=== PATIENT | male | born 1925 | race Caucasian/White ===

== ENCOUNTER → 2016-08-23 | Outpatient (CLI) | payer OTHER ==
--- NOTE | 2016-08-23 17:34 | US ---
Left lower extremity duplex venous Doppler INDICATION: Left leg pain and swelling. TECHNIQUE: Left lower extremity venous Doppler and grayscale evaluation is performed. FINDINGS: There is no evidence for DVT. The visualized superficial and deep systems demonstrate sienna l flow and compressibility. Incidentally noted is a popliteal Bird's cyst of 2.9 x 0.7 x 1.4 cm. IMPRESSION: 1. No DVT. 2. Small simple left Bird's cyst.
== END ==
LOC: FIMAGING 16:04
PROVIDERS: ATTEND Family Medicine
DX: R22.42 Localized swelling, mass and lump, left lower limb (principal); M71.22 Synovial cyst of popliteal space [Baker], left knee

== ENCOUNTER 2016-09-07 19:15 | Inpatient (IN) | payer OTHER ==
--- NOTE | 2016-09-07 19:22 | EDPHY ---
H & P Time Seen by Provider: 09/07/16 19:20 HPI/ROS: CHIEF COMPLAINT: Mechanical fall, right hand pain, left shoulder pain, neck pain HISTORY OF PRESENT ILLNESS: The patient is brought to the emergency department by ambulance after he sustained a mechanical fall. Patient does have a history of atrial fibrillation and is anticoagulated. The patient has stopped taking some his medications recently secondary to dizziness. Patient was unable to get up and activated his Life Alert button. The patient was noted to be in atrial fibrillation in route with a variable rate anywhere from 90-160. In the ED, the patient complains of right hand pain. The patient also complains of some occipital pain and mild generalized cervical neck pain. He denies nausea or vomiting. He denies focal numbness or weakness. He denies additional extremity complaints. REVIEW OF SYSTEMS: A comprehensive 10 point review of systems is otherwise negative aside from elements mentioned in the history of present illness. 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, BPH, back pain, sleep apnea - Social History Smoking Status: Former smoker Alcohol Use: None Drug Use: None - Physical Exam Exam: General Appearance: Elderly male, no acute distress Head: Atraumatic Eyes: Pupils equal, round, reactive ENT, Mouth: No hemotympanum, no oral trauma Neck: Nontender, trachea midline Respiratory: No chest wall tender, subcutaneous air, lungs clear bilaterally Cardiovascular: Regular rate and rhythm Abdomen: Abdomen is soft and nontender, pelvis stable Skin: No lacerations, No abrasion Back: No midline T/L/S pain Extremities: Tenderness to palpation, abrasions Neurological: Alert and oriented x1, 5/5 strength all 4 extremities Constitutional: Initial Vital Signs Temperature (C) 36.5 C 09/07/16 19:35 Heart Rate 116 H 09/07/16 19:35 Respiratory Rate 18 09/07/16 19:35 Blood Pressure 121/88 H 09/07/16 19:35 O2 Sat (%) 88 L 09/07/16 19:35 O2 Delivery Mode Nasal Cannula O2 (L/minute) 2 Allergies/Adverse Reactions: amoxicillin trihydrate [From Augmentin] Allergy (Severe, Verified 07/01/16 12:13 ) Hives hydrocodone [Hydrocodone] Allergy (Severe, Verified 07/01/16 12:13) Hives levofloxacin [From Levaquin] Allergy (Severe, Verified 07/01/16 12:13) Hives Potassium Chloride [From Klor-Con] Allergy (Severe, Verified 07/01/16 12:13) ANKLE SWELLING potassium clavula *RETIRED-04/13/12 [From Augmentin] Allergy (Severe, Verified 07/01/16 12:13) Hives furosemide [From Lasix] Allergy (Unknown, Verified 07/01/16 12:13) JOINT PAIN Sulfa (Sulfonamide Antibiotics) Allergy (Unknown, Verified 07/01/16 12:13) NAUSEA, VOMITING triamterene [Triamterene] Allergy (Unknown, Verified 07/01/16 12:13) Unknown Home Medications: Medication Instructions Recorded Acetaminophen [Tylenol 325mg (*)] 650 mg PO DAILY PRN 11/01/13 Warfarin Sodium [Coumadin 5MG (*)] 5 mg PO DAILY@16 11/01/13 Atorvastatin Calcium [Lipitor 40 40 mg PO DAILY@16 01/06/15 mg (*)] Methenamine Mandelate [METHENAMINE 0.5 tab PO BID 01/06/15 MANDELATE] Colchicine [Colcrys] 0.6 mg PO DAILY PRN 10/29/15 Edroy-3 Fatty Acids [Fish Oil 1000 1,000 mg PO BID 10/29/15 mg (*)] Vit A/Vit C/Vit E/Zinc/Copper 1 cap PO BID 10/29/15 [Preservision Areds Softgel] Furosemide [Lasix 20 MG (*)] 20 mg PO BID@0900,1500 #60 tab 07/04/16 Diltiazem Cd [Cardizem ER 120 MG 120 mg PO BID 09/08/16 (*)] Medical Decision Making - Diagnostics EKG Interpretation: EKG: Complete interpretation has been separately recorded in the [facility] archive. Summary impression: Atrial fibrillation with rapid ventricular response, atrial rate 132 Imaging: CT head without contrast: Negative for intracranial hemorrhage. Images reviewed by myself and discussed with radiologist Dr. Demarco Barber. CT cervical spine: Negative for acute fracture, severe DJD noted. Images reviewed by myself and discussed with radiologist Dr. Demarco Barber. Right hand x-ray: Images reviewed by myself, images reviewed by myself Left shoulder x-ray: Negative for acute fracture, images reviewed by myself Right hand x-ray: Images reviewed by myself, negative for acute fracture ED Course/Re-evaluation: The patient arrives to the ED after mechanical fall. He is noted to be in atrial fibrillation with rapid ventricular response. The patient is currently anticoagulated. The patient was placed on a laboratory monitor. He is not hypotensive. The patient will be started on diltiazem drip. Given the fact he is anticoagulated with headache and neck pain, a CT scan of the head and cervical spine has been ordered. Additionally, the patient will receive IV fluids as he appears clinically dehydrated. Radiographic survey the patient's traumatic complaints demonstrate no evidence of intracranial hemorrhage, skull fracture, cervical spine fracture or extremity fracture. The patient will be admitted to the hospital in the setting of his rapid atrial fibrillation. The patient was seen by Dr. Peña in the emergency department will admit the patient. Differential Diagnosis: Differential diagnosis considered includes intracranial hemorrhage, skull fracture, cervical spine fracture, atrial fibrillation with rapid ventricular response, shoulder fracture, hand fracture, metabolic abnormality - Data Points Laboratory Results: Laboratory Results 09/07/16 19:18 09/07/16 19:18 Medications Given: Discontinued Medications Sodium Chloride (Ns) 1,000 mls @ 0 mls/hr IV ONCE ONE PRN Reason: Wide Open Stop: 09/07/16 19:30 Last Admin: 09/07/16 19:50 Dose: 1,000 mls Diltiazem HCl 125 mg/ Dextrose 150 mls @ 0 mls/hr IV EDNOW ONE; Titrate PRN Reason: Protocol Stop: 09/07/16 19:48 Last Admin: 09/07/16 20:10 Dose: 150 mls Sodium Chloride (Ns) 500 mls @ 1,500 mls/hr IV ONCE ONE Stop: 09/07/16 21:04 Last Admin: 09/07/16 21:42 Dose: Not Given Departure - Departure Disposition: [facility] Inpatient Acute Clinical Impression: Atrial fibrillation with tachycardic ventricular rate, Strain of neck muscle, Contusion of scalp Condition: Good
[2016-09-07] MEDS ORDERED: NS 1,000 ML IV ONE (19:29)
[2016-09-07 19:33] LABS: % IMMATURE GRANULYOCYTES 0.4 % (0.0-1.1); ABSOLUTE IMMATURE GRANULOCYTES 0.03 10^3/uL (0.00-0.10); ADD DIFF? NO; ADD MORPH? NO; ADD SCAN? NO; ATYPICAL LYMPHOCYTE FLAG 20 (0-99); FRAGMENT RBC FLAG 0 (0-99); HEMATOCRIT 44.4 % (40.0-51.0); HEMOGLOBIN 14.6 g/dL (13.7-17.5); LEFT SHIFT FLG 0 (0-99); LIPEMIA HEMOLYSIS FLAG 80 (0-99); MEAN CELL HEMOGLOBIN 30.7 pg (27.9-34.1); MEAN CELL HEMOGLOBIN CONCENTR. 32.9 g/dL (32.4-36.7); MEAN CELL VOLUME 93.5 fL (81.5-99.8); MEAN PLATELET VOLUME 9.8 fL (8.7-11.7); PLATELET CLUMPS FLAG 0 (0-99); PLATELET COUNT 301 10^3/uL (150-400); RED BLOOD CELL COUNT 4.75 10^6/uL (4.40-6.38); RED CELL DISTRIBUTION WIDTH 14.7 % (11.5-15.2)
[2016-09-07 19:45] LABS: INR 1.61 (0.83-1.16); PROTIME(PATIENT) 19.2 SEC (12.0-15.0)
[2016-09-07] MEDS ORDERED: DILTIAZEM 125 MG in D5W 125 ML IV ONE (19:47)
[2016-09-07 19:48] LABS: ANION GAP 13 mEq/L (8-16); CARBON DIOXIDE 24 mEq/l (22-31); CHLORIDE 103 mEq/L (97-110); CREATININE 1.2 mg/dL (0.7-1.3); GLOMERULAR FILTRATION RATE 57; GLUCOSE 106 mg/dL (70-100); POTASSIUM 4.5 mEq/L (3.5-5.2); SODIUM 140 mEq/L (134-144)
--- NOTE | 2016-09-07 19:56 | CPEKG ---
Heart Rate: 132 RR Interval: 455 QRSD Interval: 126 QT Interval: 348 QTC Interval: 516 QRS [place]: -47 T Wave [place]: 16 EKG Severity - ABNORMAL ECG - EKG Impression: ATRIAL FIBRILLATION, V-RATE 90-165 EKG Impression: RBBB AND LAFB EKG Impression: PROBABLE LEFT VENTRICULAR HYPERTROPHY Electronically Signed By: Guille Hernandez 07-Sep-2016 19:56:56
--- NOTE | 2016-09-07 20:30 | CT ---
CT Scan of the Head (Without Contrast) Clinical History: 89-year-old male with a history of atrial fibrillation who sustained a fall, hittin g his head and complaining of occipital pain and generalized neck pain. Technique: Axial unenhanced images were obtained from the vertex through the skull base, reformatted at 5.00 and 1.50 mm increments, and reviewed in bone, brain, and subdural windows. Images were repro cessed in parasagittal and paracoronal planes. Dose reduction techniques were utilized. The DFOV is 2 5.0 cm. Comparison Studies: Unenhanced CT scan of the brain dated April 29, 2016 and February 27, 2016. Findings: Again, there is enlargement of the ventricles and basilar cisterns with cortical sulcal wid ening, consistent with moderately advanced cerebral cortical atrophy (NPH is not excluded, although t he findings are stable from before). There is periventricular diminished attenuation, consistent with chronic microvascular ischemic gliosis. There is also some cerebellar cortical atrophy. There is ath erosclerotic calcification of the cavernous carotid arteries and of the left vertebral artery. There is no midline shift, or other new evidence of mass effect. There is no abnormal intra or extra-axial blood collection, or acute infarction identified. The paranasal sinuses and the mastoids are patent, with some minimal mucosal thickening seen at the frontal-ethmoidal recesses. The craniocervical junct ion, sella turcica, pineal gland, and the orbits are within normal limits. Impression: Advanced senescent features, with no substantial change from studies in 2016. If there is further clinical concern regarding the patient's symptoms, MR imaging is suggested, if no t otherwise contraindicated. Results were conveyed to Dr. Guille Hernandez. A test result has been communicated to a licensed care provider and documented in the [employer] Critical Result system on 09/07/2016 20:26, Message ID [id number].
--- NOTE | 2016-09-07 20:42 | CT ---
Unenhanced CT Scan of the Cervical Spine Clinical History: 89-year-old male presenting to the ED after a fall hitting back of his head and com plaining of occipital pain and generalized cervicalgia. The patient is anticoagulated, and has a hist ory of atrial fibrillation. TECHNIQUE: A multidetector unenhanced helical CT scan was obtained from the clivus caudally through t he upper thoracic spine, with images reformatted at 1.50 mm increments, and are reviewed in soft tiss ue, bone, and lung windows. Parasagittal and paracoronal reconstructed images are reviewed on the wor kstation. The DFOV is 14.9 cm. COMPARISON STUDY: Unenhanced CT imaging of the cervical spine, dated April 29, 2016. FINDINGS: The bones are demineralized, and the morphology of the cervical vertebral bodies is unchang ed from April 29, 2016. There is trace anterolisthesis at C4-C5. There is degenerative disk space narrowing at C5-C6 and C6-C7 with vacuum disk phenomena. Ventral traction osteophytes are seen from C4 to C7. Multilevel facet osteoarthropathy and uncovertebral hypertrophy results in neural foraminal stenoses, most pronounced on the right at C4-C5, on the left at C5-C6, and on the left at C6-C7. The re is no acute fracture or facet malalignment. The interspinous distances are normal. The craniocervi vincent junction is normal. There is degenerative narrowing of the predental space, with osseous hypertro phy of the anterior arch of C1. The atlantoaxial alignment is maintained, and the base and the tip of the dens are normal. There is no prevertebral hematoma or epidural hematoma identified. The lung api cuba are clear. Impression: Senescent features of the spine, with no acute abnormality, or substantial change from Se pt2015. If there is further clinical concern regarding the patient's symptoms, correlative MR imaging could b e considered, if otherwise not contraindicated. Results were discussed with Dr. Ozzie Urias, who is now covering for Dr. Erwin Hernandez. A test result has been communicated to a licensed care provider and documented in the [employer] Critical Result system on 09/07/2016 20:35, Message ID [id number].
[2016-09-07] MEDS ORDERED: ONDANSETRON DISINTEGRATING 4 MG TAB PO PRN (20:45)
[2016-09-07] MEDS ORDERED: NS 500 ML IV ONE (20:45)
[2016-09-07] MEDS ORDERED: ONDANSETRON 4 MG/2 ML VIAL IVP PRN (20:45)
--- NOTE | 2016-09-07 21:00 | DX ---
Bilateral Hands, Three Views Each Clinical History: 89-year-old male with right and left hand pain after a fall. Rule out fracture. Comparison Study: None. Findings LEFT HAND, at 8:40 p.m.: The bones are demineralized. There is some degenerative narrowing of the r adioulnar joint space and also of the navicular-greater multangular articulation. There is some mild degenerative change involving the thumb MCP and IP joints. There is a palmar spur associated with t he distal radius. Vascular calcifications are present. There is no acute fracture or dislocation id entified. Impression: There is no acute osseous abnormality identified. RIGHT HAND, at 8:16 p.m.: As on the contralateral side, the bones are demineralized. Vascular calci fications are present. There is some degenerative narrowing of the navicular-greater multangular art iculation, and also involving the thumb MCP and IP joints and the 2nd through 5th digit DIP joints. There is no acute fracture or dislocation identified. Impression: There is no acute fracture identified. Given the patient's degree of bone demineralization, if there is a high clinical concern regarding an occult fracture, conservative management and short-term repeat radiographic follow up in 7-14 days c ould be considered.
--- NOTE | 2016-09-07 21:05 | DX ---
Left Shoulder, Three Views, at 8:24 p.m. Clinical History: 89-year-old male who fell, and complains of shoulder pain. Comparison Study: None. Findings: Oxygen tubing and telemetry monitoring lead lines are present. The bones are demineralize d. There is no acute fracture or dislocation. The glenohumeral and acromioclavicular joints are corinne tomically aligned. There is some mild degenerative change at the AC joint. The coracoclavicular and acromiohumeral distances are appropriate. There are some hypoventilatory changes associated with th e left hemithorax, with some left basilar subsegmental atelectasis. There is atherosclerotic calcifi cation of the aortic knob. The visualized left rib cage is intact. Impression: There is no acute osseous abnormality identified. If there is a high clinical concern regarding the patient's pain, MR imaging could be considered.
--- NOTE | 2016-09-07 21:41 | GHP ---
[f rep st] HISTORY AND PHYSICAL DATE OF ADMISSION: 09/07/2016 CHIEF COMPLAINT: Fall. HISTORY OF PRESENT ILLNESS: An 89-year-old male with multiple medical comorbidities including perman ent atrial fibrillation who presents after a fall in the home. The patient cannot entirely describe the circumstances of his fall, but just felt lightheaded and fell down, hitting his head and injuring his hand and shoulder. The patient reports not feeling well over the preceding days, and had report ed to a family member that he thought the medications that he was being given for his atrial fibrilla tion were the cause. So he decided to discontinue those medications. To me, he reports that he simp ly fell weak and lethargic. Denied any specific shortness of breath. Denied cough. Denied specific fever. Denied chest pain, does not feel palpitations even when his heart rate is going fast. Minerva yu nausea. Had transient diarrhea which has resolved in the last couple of days. Denies dysuria, hem aturia or lower extremity edema. He did feel some dizziness prior to his fall. After the fall, was unable to activate his Life Alert button. He is complaining of right hand pain and some headache. PAST MEDICAL HISTORY: For this patient: 1. Atrial fibrillation. 2. Chronic systolic heart failure. 3. An infrarenal AAA. 4. Diabetes. 5. Dyslipidemia. 6. Hypertension. 7. CKD. 8. History of pulmonary embolism, on anticoagulation. 9. BPH. 10. Sleep apnea. 11. Back pain. SOCIAL HISTORY: Patient lives alone. Does not smoke. Drinks 1 vodka tonic in the evenings. Denies illicit drugs or marijuana. FAMILY HISTORY: Positive for an ME in his father in his 50s. ADVANCED DIRECTIVES: The patient is Do Not Resuscitate. His son would be his medical decision maker . REVIEW OF SYSTEMS: A 10-point review of systems is negative with the exception of that reported in t he HPI. PHYSICAL EXAMINATION: VITAL SIGNS: Blood pressure is 103/62, heart rate 135, respiratory rate 18, 9 3% on 2 L, afebrile at 36.5. GENERAL: This is a pleasant elderly male in no acute distress. HEENT: Notable for dry mucous membranes. Eyes are negative for any icterus. CARDIAC: Patient is irregul amada irregular and tachycardic. PULMONARY: Good respiratory effort. Clear to auscultation bilatera lly. GASTROINTESTINAL: Positive bowel sounds. Abdomen is soft. MUSCULOSKELETAL: Negative for any lower extremity edema. SKIN: There is excoriation to the head and bruising to the right hand. Neg ative for any rashes. NEUROLOGIC: The patient is alert and oriented x3. PSYCHIATRIC: He is pleasa nt and cooperative on interview and examination. DATA: White count 8.5, hematocrit 44. INR 1.6. Creatinine 1.2, recent baseline is 1. BUN 28. Noncontrast CT of the head, which I personally reviewed and interpreted, shows no acute bleed. Hand x-ray, which I personally reviewed and interpreted, shows no acute osseous abnormality of the le ft or right hand. ASSESSMENT AND PLAN: This is an 89-year-old male presenting after a fall with a prodrome of weakness and dizziness. 1. Acute atrial fibrillation with rapid ventricular response. I suspect the patient's rates are unc ontrolled because he has not been taking his medications at home. We will admit the patient to the [facility] and initiate a diltiazem drip. The fall certainly brings me great concerns related to his anticoa gulation. Will need to discuss this further as I believe he is reasonably a high risk for full-dose anticoagulation. 2. Chronic systolic heart failure. The patient is requiring 2 L of supplemental oxygen. Has no low er extremity edema. We will continue his chronic home medications. He appears dry on my examination . 3. Coronary artery disease. Has a history of stenting. Not complaining of chest pain. Will contin ue his home medications. 4. Diabetes. This is diet managed, will continue. 5. Fall. Sounds less mechanical, more related to possible atrial fibrillation and associated tachyc ardia and dizziness. Will order PT/OT for evaluation. My suspicion is high this patient needs eithe r a much higher level of support at home or SNF disposition. 6. Prophylaxis. Will continue patient's warfarin as INR is subtherapeutic. 7. DIET: Cardiac. 8. DISPOSITION: I expect greater than 2 midnights. Some complicated conversations will need to be initiated about safe disposition. 9. I discussed the case with the emergency room physician. Patient will be triaged to the PCU for c are. /[id number]/MODL
[2016-09-07] MEDS ORDERED: DILTIAZEM 125 MG in D5W 125 ML IV SCH (22:00)
[2016-09-08 06:04] LABS: ANION GAP 11 mEq/L (8-16); CALCIUM 8.2 mg/dL (8.5-10.4); CARBON DIOXIDE 24 mEq/l (22-31); CHLORIDE 107 mEq/L (97-110); GLOMERULAR FILTRATION RATE > 60; GLUCOSE 92 mg/dL (70-100); POTASSIUM 4.1 mEq/L (3.5-5.2); SODIUM 142 mEq/L (134-144)
[2016-09-08] MEDS: PRESERVISION AREDS2 FORMULA EYE VIT 1 EACH PO SCH ×2 (09:01→18:31)
[2016-09-08] MEDS: OMEGA-3 FATTY ACIDS 1,000 MG CAP PO SCH ×2 (09:01→21:00)
[2016-09-08] MEDS: METHENAMINE HIPP 1 GM TAB PO SCH ×2 (10:23→20:58)
--- NOTE | 2016-09-08 10:46 | PDCARPN ---
Cardiology Progress Note Chief Complaint: Fall with syncope at home Assessment/Plan: Assessment: Patient is an 89 y/o male with outpatient following by [facility] for CHF ( ischaemic), atrial fibrillation (on coumadin with [id number] score of 5), AAA, DM, HTN, HLP, PE (on anticoagulation for this as well), and ANDRE, who presented to [facility] after dizziness and syncope were noted. Patient has not been seen by [facility] for some time (last seen in the fall) with discussion at that time about lack of symptoms. Event monitor was also performed prior to the last office visit by Dr. Merrick Medrano after concerns about SSS with the atrial fibrillation. Pauses up to 3.5 seconds were noted without debra symptoms reported. Patient is very hard of hearing, and there is some confusion about medications (there are only three cardiac meds - statins, beta blockers, and anticoagulation). In his room today, the patient reports that he has been feeling fair, but does not know how he got on the floor. There was some dizziness noted, but difficult to know if the dizziness was before the event or after the event. Patient denies and chest pains or pressure. No PND or orthopnea. Plan: (1) Given the long standing history of atrial fibrillation and the pauses that were noted on the event monitor from the Fall of 2015, there is an arguement for PPM implantation, but indication is quite soft. (2) Would ambulate the patient on telemetry today and monitor symptoms and rhythm (3) Continue therapy on statins for HLP and maintain annual assessment of cholesterol (4) Would continue coumadin for both CVA risk and history of PE (5) Metoprolol can be continued while in house, but would consider cessation ( if blood pressure would allow) given the pauses that were noted on an event monitor from the Fall (6) Cardiology will continue to follow this patient Subjective: No cardiovascular complaints Reviewed/Discussed With: multidisciplinary team Time Spent With Patient: 15 minutes Objective: Vital Signs (8 Hrs) Temp Pulse Resp BP Pulse Ox 09/08/16 07:31 36.6 C 92 18 124/85 H 90 L 09/08/16 04:33 36.9 C 82 20 110/74 91 L Intake/Output (24 Hrs) 09/07/16 09/08/16 09/09/16 05:59 05:59 05:59 Intake Total 2578 300 Output Total 250 Balance 2578 50 Intake: Oral (ml) 200 300 IV Infused (ml) 2378 Diltiazem 125 mg In D5w 78 125 ml @ Per Protocol IV CONT CLAU Rx#:[id number] Output: Urine (ml) 250 Toilet 250 Other: Weight 86.4 kg Intake Quantity Yes Yes Sufficient Number of Voids 1 Toilet 1 Result Diagrams: 09/07/16 19:18 09/08/16 03:56 Telemetry: atrial fibrillation with controlled rates (<110 bpm) - Physical Exam Constitutional: WDWN, healthy appearing, no apparent distress Eyes: PERRL, EOMI Ears, Nose, Mouth, Throat: moist mucous membranes Cardiovascular: systolic murmur, irregularly irregular Peripheral Pulses: 2+: dorsalis-pedis (R), dorsalis-pedis (L) Respiratory: clear to auscultate bilat, no wheezes, reduced air movement Gastrointestinal: normoactive bowel sounds Skin: no rashes, no edema Musculoskeletal: no muscular tenderness Neurologic: AAOx3, CN II-XII grossly intact Psychiatric: cooperative, interactive, following commands, other (very hard of hearing) ICD10 Worksheet Patient Problems: Problems Problem Status Diagnosed Atrial fibrillation with tachycardic ventricular rate Acute Confusion Acute Dizziness Acute Failure to thrive Acute Acute exacerbation of congestive heart failure Acute Chest pain Acute Congestive heart failure Acute Frequent falls Acute Head injury Acute Palliative care encounter Acute Pneumonia Acute
[2016-09-08] MEDS ORDERED: DILTIAZEM CD 120 MG CAP PO SCH (14:30)
[2016-09-08] MEDS: ATORVASTATIN CALCIUM 40 MG TAB PO SCH (15:09)
[2016-09-08] MEDS: DILTIAZEM 30 MG TAB PO SCH ×2 (15:10→20:58)
[2016-09-08] MEDS ORDERED: WARFARIN SODIUM 5 MG TAB PO SCH (16:00)
--- NOTE | 2016-09-08 17:55 | HOSPPROG ---
Hospitalist Progress Note Assessment/Plan: A 11-year-old male admitted with AFib in RVR. He was placed on a diltiazem drip and has been brought under good rate control. He has a history of frequent falls and is on Coumadin anticoagulation. Patient is new to me today. -atrial fibrillation with RVR. Currently this is in good control and he is being changed to p.o. diltiazem. I note on the patient's home medications he was on diltiazem CD twice a day. He also had an event monitor in March of 2016 which showed pauses of 3.2 seconds. It seems probable that there is some medication confusion here. Today in order to control his atrial fibrillation rate I will place him on diltiazem 30 mg q.6 hours and then the long-acting diltiazem can be dosed from there. -possible sick sinus syndrome: Meron had a 30 day event monitor in March of 2026 18 which shows pauses of 3.2 seconds. Per Cardiology this is insufficient to documentation to rationalize a permanent pacemaker. Cardiology recommends evaluating the monitors here while he is in the hospital both at rest and with exercise. This is being done and no prolonged pauses at this time have been noted. -anticoagulation on Coumadin: Meron is some fall risks and has a chads score of 5 with hypertension diabetes atrial fibrillation. For now we will continue his Coumadin anticoagulation yet he should be watched closely for frequent falls. - CHF with clinically systolic dysfunction with peripheral edema. His last echocardiogram in 2013 showed a normal EF. Thus the manifestation of CHF is more likely due to uncontrolled ventricular rate in atrial fibrillation and possibly diastolic dysfunction. The diastolic dysfunction is not documented. For now his edema is improving. He has no chest pain or rales. The diagnosis would be CHF with possible systolic dysfunction secondary to atrial fibrillation with RVR -chronic kidney disease with a baseline creatinine near 1.2. This has resolved as his creatinine is 1.0 - diabetes mellitus: Diet controlled. Plan: Continue continuous monitoring and establish good rate control with diltiazem on a p.o. basis and adjust diltiazem dose accordingly. If long pauses are noted that he should be considered for permanent pacemaker. Cardiology is following with you Subjective: No complaints of chest pain or shortness of breath he says he feels improved. No cough fever or shortness of breath Objective: Vital Signs Temp Pulse Resp BP Pulse Ox 36.4 C 83 20 105/65 97 09/08/16 16:14 09/08/16 16:14 09/08/16 16:14 09/08/16 16:14 09/08/16 16:14 Laboratory Results 09/08/16 03:56 09/07/16 09/08/16 09/09/16 05:59 05:59 05:59 Intake Total 2578 1270 Output Total 450 Balance 2578 820 PT 19.2 SEC (12.0-15.0) H 09/07/16 19:18 INR 1.61 (0.83-1.16) H 09/07/16 19:18 - Time Spent With Patient Time Spent with Patient: greater than 35 minutes Time Spent with Patient: Greater than 35 minutes spent on this patients care, greater than 50% of time spent counseling, educating, and coordinating care regarding the above mentioned plan. - Pending Discharge Pending Discharge Within 48 Hours: Yes Pending Discharge Date: 09/10/16 Pending Discharge Time: 11:00 - Physical Exam Constitutional: no apparent distress Eyes: PERRL, anicteric sclera Ears, Nose, Mouth, Throat: moist mucous membranes, hard of hearing Cardiovascular: irregularly irregular, other (Atrial fibrillation noted with a rate of approximately 100. He tolerates exercise without adverse increase in rate) Respiratory: no respiratory distress, no rales or rhonchi Gastrointestinal: normoactive bowel sounds, soft, non-tender abdomen, no palpable masses Musculoskeletal: generalized weakness Neurologic: AAOx3, CN II-XII Intact Psychiatric: interacting appropriately ICD10 Worksheet Patient Problems: Problems Problem Status Diagnosed Atrial fibrillation with tachycardic ventricular rate Acute Confusion Acute Dizziness Acute Failure to thrive Acute Acute exacerbation of congestive heart failure Acute Chest pain Acute Congestive heart failure Acute Frequent falls Acute Head injury Acute Palliative care encounter Acute Pneumonia Acute
[2016-09-09] MEDS: DILTIAZEM 30 MG TAB PO SCH ×4 (03:03→21:52)
[2016-09-09] MEDS: ACETAMINOPHEN 325 MG TAB PO PRN ×3 (03:06→16:11)
[2016-09-09 05:44] LABS: ALANINE AMINOTRANSFERASE 103 IU/L (21-72); ALBUMIN 2.4 g/dL (3.5-5.0); ANION GAP 9 mEq/L (8-16); ASPARTATE AMINOTRANSFERASE 81 IU/L (17-59); BILIRUBIN,TOTAL 1.3 mg/dL (0.1-1.4); CARBON DIOXIDE 24 mEq/l (22-31); CHLORIDE 107 mEq/L (97-110); CREATININE 0.9 mg/dL (0.7-1.3); GLOMERULAR FILTRATION RATE > 60; GLUCOSE 104 mg/dL (70-100); POTASSIUM 4.4 mEq/L (3.5-5.2); SODIUM 140 mEq/L (134-144); TOTAL PROTEIN 5.6 g/dL (6.3-8.2)
[2016-09-09] MEDS: METHENAMINE HIPP 1 GM TAB PO SCH ×2 (09:39→21:52)
[2016-09-09] MEDS: PRESERVISION AREDS2 FORMULA EYE VIT 1 EACH PO SCH ×2 (09:39→18:49)
[2016-09-09] MEDS: OMEGA-3 FATTY ACIDS 1,000 MG CAP PO SCH ×2 (09:40→21:52)
--- NOTE | 2016-09-09 12:16 | HOSPPROG ---
Hospitalist Progress Note Assessment/Plan: 89 yo M w AF, fall, fever fever: no localizing sx check cxr and influenza ruq u/s given elevated lft's falls: h/o pauses pacer in AM pt/ot evals AF: permanent on dilt proph: had been on coumadin check inr code: dnr dispo: inpt Subjective: case d/w dr tabares. tele: no pause (interp by me) Objective: Vital Signs Temp Pulse Resp BP Pulse Ox 36.8 C 112 H 18 109/84 H 92 09/09/16 08:00 09/09/16 08:00 09/09/16 08:00 09/09/16 08:00 09/09/16 08:00 Laboratory Results 09/09/16 04:00 09/08/16 09/09/16 09/10/16 05:59 05:59 05:59 Intake Total 2578 2440 Output Total 1000 Balance 2578 1440 PT 19.2 SEC (12.0-15.0) H 09/07/16 19:18 INR 1.61 (0.83-1.16) H 09/07/16 19:18 - Physical Exam Constitutional: no apparent distress Eyes: PERRL Ears, Nose, Mouth, Throat: moist mucous membranes, hearing normal Cardiovascular: regular rate and rhythym, no murmur, rub, or gallop Respiratory: no respiratory distress, other (crackles at R base) Gastrointestinal: normoactive bowel sounds, soft, non-tender abdomen Genitourinary: No douglas in urethra Skin: warm, normal color Musculoskeletal: full muscle strength Neurologic: AAOx3 ICD10 Worksheet Patient Problems: Problems Problem Status Diagnosed Atrial fibrillation with tachycardic ventricular rate Acute Confusion Acute Dizziness Acute Failure to thrive Acute Neck strain Acute Scalp contusion Acute Acute exacerbation of congestive heart failure Acute Chest pain Acute Congestive heart failure Acute Frequent falls Acute Head injury Acute Palliative care encounter Acute Pneumonia Acute
--- NOTE | 2016-09-09 12:36 | SOAPPROG ---
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 This was associated with a subsequent fall. Fortunately, he did not injure himself. At this point, I think the most likely etiology for this event is significant bradycardia. This was discussed with him today. It should be noted that I have seen him during previous hospitalizations and we have had discussions about the possibility of implanting a permanent pacemaker. At this point, I think that we should proceed. The risks, benefits and alternatives were discussed with him today. He would like to discuss this further with his daughter. He is on Coumadin with an INR of 1.6. I will write to hold his Coumadin for now. We do not need normalized his INR prior to implantation. He did have a low-grade temperature last night. Dr. Egan is addressing this and, if there are no signs of an active infection, we can proceed with placement of his pacemaker tomorrow. 09/09/16 12:34 Subjective: The patient was seen and examined. The chart was reviewed. I have seen him in the past. He is admitted following an episode of near-syncope. He states that he was at home, he got up to answer the front door and experienced an episode where things went black. Subsequently, he fell down. Fortunately, he did not injure himself. He does not think that he lost consciousness. He has been admitted previously with falls. He has had a previous Holter monitor done in our office that indicated tachy-jermaine syndrome with pauses in excess of 3.2 seconds. Objective: Vital Signs Temp Pulse Resp BP Pulse Ox 36.8 C 112 H 18 109/84 H 92 09/09/16 08:00 09/09/16 08:00 09/09/16 08:00 09/09/16 08:00 09/09/16 08:00 Laboratory Results 09/09/16 04:00 09/08/16 09/09/16 09/10/16 05:59 05:59 05:59 Intake Total 2578 2440 Output Total 1000 Balance 2578 1440 PT 19.2 SEC (12.0-15.0) H 09/07/16 19:18 INR 1.61 (0.83-1.16) H 09/07/16 19:18 Physical Exam - Physical Exam General Appearance: WD/WN, no apparent distress Neck: non-tender, full range of motion Respiratory: lungs clear Cardiac/Chest: irregularly irregular, No edema, No gallop, No JVD Peripheral Pulses: 2+: carotid (R), carotid (L) Abdomen: non-tender Rectal: deferred Neuro/Psych: alert, normal mood/affect, oriented x 3 ICD10 Worksheet Patient Problems: Problems Problem Status Diagnosed Atrial fibrillation with tachycardic ventricular rate Acute Confusion Acute Dizziness Acute Failure to thrive Acute Neck strain Acute Scalp contusion Acute Acute exacerbation of congestive heart failure Acute Chest pain Acute Congestive heart failure Acute Frequent falls Acute Head injury Acute Palliative care encounter Acute Pneumonia Acute
[2016-09-09] MEDS: ATORVASTATIN CALCIUM 40 MG TAB PO SCH (16:03)
--- NOTE | 2016-09-09 17:33 | US ---
Abdominal Sonogram Complete Clinical Indications: Elevated liver functions. Comparison: CT February 24, 2016 Findings: The liver is normal in size measuring 17.4 cm. There is no primary hepatic mass or evidenc e for hepatic metastatic disease. There is sludge in the gallbladder. There are no gallstones gallbla dder wall thickening or pericholecystic fluid. T there is no intra or extrahepatic biliary dilatatio n. The pancreas is poorly visualized due to bowel gas. The spleen is normal in size . The 4.1 cm inf rarenal abdominal aortic aneurysm. The kidneys are normal. Incidentally noted is a left lower pole 1. 4 cm simple cyst. There is no free fluid. Impression: 1. No source for abnormal liver functions identified. 2. Sludge in the gallbladder without secondary evidence of cholecystitis. 3. Poorly visualized pancreas. 4. 4.1 cm infrarenal abdominal aortic aneurysm, not significantly changed since CT February 24, 2016 (4 c m).
--- NOTE | 2016-09-09 18:20 | DX ---
PA and Lateral Chest - September 09, 2016 History: Fever and basilar crackles in an 89-year-old male. Comparison: Comparison to the prior study of July 02, 2016. Findings: The heart is enlarged and there is pulmonary venous prominence. Basilar opacities at the jerod ng bases are present bilaterally, more pronounced on the right where superimposed pneumonia cannot be excluded. The upper lungs are clear. Hyperexpansion is seen with flattening of the hemidiaphragms. A small right pleural effusion is suspected. Impression: 1. Congestive heart failure. 2. Bibasilar opacities, right greater than left, could be cardiogenic or might represent developing p neumonia superimposed upon COPD.
[2016-09-09 20:30] LABS: ALKALINE PHOSPHATASE 114 IU/L (38-126)
[2016-09-10] MEDS: ACETAMINOPHEN 325 MG TAB PO PRN ×3 (03:14→22:03)
[2016-09-10] MEDS: DILTIAZEM 30 MG TAB PO SCH ×3 (03:15→14:53)
[2016-09-10 05:04] LABS: % IMMATURE GRANULYOCYTES 0.6 % (0.0-1.1); ABSOLUTE IMMATURE GRANULOCYTES 0.05 10^3/uL (0.00-0.10); ADD DIFF? NO; ADD MORPH? NO; ADD SCAN? NO; ATYPICAL LYMPHOCYTE FLAG 10 (0-99); FRAGMENT RBC FLAG 0 (0-99); HEMATOCRIT 39.6 % (40.0-51.0); HEMOGLOBIN 12.8 g/dL (13.7-17.5); LEFT SHIFT FLG 0 (0-99); LIPEMIA HEMOLYSIS FLAG 80 (0-99); MEAN CELL HEMOGLOBIN CONCENTR. 32.3 g/dL (32.4-36.7); MEAN CELL VOLUME 92.7 fL (81.5-99.8); PLATELET CLUMPS FLAG 10 (0-99); PLATELET COUNT 278 10^3/uL (150-400); RED BLOOD CELL COUNT 4.27 10^6/uL (4.40-6.38); RED CELL DISTRIBUTION WIDTH 14.7 % (11.5-15.2)
[2016-09-10 05:20] LABS: ALANINE AMINOTRANSFERASE 107 IU/L (21-72); ALBUMIN 2.8 g/dL (3.5-5.0); ALKALINE PHOSPHATASE 123 IU/L (38-126); ANION GAP 11 mEq/L (8-16); ASPARTATE AMINOTRANSFERASE 71 IU/L (17-59); BILIRUBIN,TOTAL 1.5 mg/dL (0.1-1.4); CALCIUM 8.4 mg/dL (8.5-10.4); CARBON DIOXIDE 23 mEq/l (22-31); CHLORIDE 107 mEq/L (97-110); CREATININE 0.9 mg/dL (0.7-1.3); GLOMERULAR FILTRATION RATE > 60; GLUCOSE 102 mg/dL (70-100); POTASSIUM 4.4 mEq/L (3.5-5.2); SODIUM 141 mEq/L (134-144); TOTAL PROTEIN 5.9 g/dL (6.3-8.2)
[2016-09-10 05:26] LABS: INR 2.07 (0.83-1.16); PROTIME(PATIENT) 23.4 SEC (12.0-15.0)
[2016-09-10 05:27] LABS: APTT 51.8 SEC (23.0-38.0)
[2016-09-10] MEDS ORDERED: NS 1,000 ML IV ONE (06:00)
[2016-09-10] MEDS ORDERED: diphenhydrAMINE 25 MG CAP PO ONE ×2 (06:00→11:12)
[2016-09-10] MEDS ORDERED: DIAZEPAM 5 MG TAB PO ONE (06:00)
[2016-09-10] MEDS ORDERED: BACITRACIN IRRIGATION/NS 50,000 UNITS/1,000 ML BTL IRR ONE (06:00)
--- NOTE | 2016-09-10 09:30 | SOAPPROG ---
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 This was associated with a subsequent fall. Following admission he has been hemodynamically stable. His heart rates in atrial fibrillation have been poorly controlled with episodes of tachycardia although we have not witnessed any bradycardia. He did have a low-grade temperature on 1 occasion without objective findings of an infectious process. He has subsequently defervesced. Plan: 1. He will have a single-chamber permanent pacemaker placed today. 2. Following placement of his permanent pacer we will be in a much better position to control his heart rates in chronic atrial fibrillation. 3. Systemic anticoagulation will be continued. 09/10/16 09:29 Subjective: He is doing well today. Denies complaints of chest discomfort, dyspnea and episodes of dizziness. He remains in atrial fibrillation with episodes of tachycardia. I spoke to Dr. Blaze Egan. At this point, his workup for fever has been negative and he has defervesced. Objective: Vital Signs Temp Pulse Resp BP Pulse Ox 36.7 C 123 H 24 H 89/74 L 91 L 09/10/16 07:41 09/10/16 07:41 09/10/16 07:41 09/10/16 07:41 09/10/16 07:41 Laboratory Results 09/10/16 04:00 09/10/16 04:00 09/09/16 09/10/16 09/11/16 05:59 05:59 05:59 Intake Total 2440 1580 Output Total 1000 2300 Balance 1440 -720 PT 23.4 SEC (12.0-15.0) H 09/10/16 04:00 INR 2.07 (0.83-1.16) H 09/10/16 04:00 Physical Exam - Physical Exam General Appearance: WD/WN, no apparent distress Neck: non-tender Respiratory: lungs clear, No crackles, No rales, No rhonchi Cardiac/Chest: irregularly irregular Peripheral Pulses: 2+: carotid (R), carotid (L) Neuro/Psych: alert, normal mood/affect, oriented x 3 ICD10 Worksheet Patient Problems: Problems Problem Status Diagnosed Atrial fibrillation with tachycardic ventricular rate Acute Confusion Acute Dizziness Acute Failure to thrive Acute Neck strain Acute Scalp contusion Acute Acute exacerbation of congestive heart failure Acute Chest pain Acute Congestive heart failure Acute Frequent falls Acute Head injury Acute Palliative care encounter Acute Pneumonia Acute
[2016-09-10] MEDS: OMEGA-3 FATTY ACIDS 1,000 MG CAP PO SCH ×2 (10:42→20:22)
[2016-09-10] MEDS: METHENAMINE HIPP 1 GM TAB PO SCH ×2 (10:42→20:22)
[2016-09-10] MEDS: PRESERVISION AREDS2 FORMULA EYE VIT 1 EACH PO SCH ×2 (10:42→17:36)
[2016-09-10] MEDS ORDERED: MIDAZOLAM 2 MG/2 ML VIAL ONE (10:53)
[2016-09-10] MEDS ORDERED: LIDO/EPI 1% **for epidural** 30 ML SDV ONE (10:53)
[2016-09-10] MEDS ORDERED: fentaNYL 100 MCG/2 ML INJ ONE (10:53)
[2016-09-10] MEDS ORDERED: LIDOCAINE 1% 30 ML SDV ONE (10:53)
[2016-09-10] MEDS ORDERED: BUPIVACAINE 0.5% 30 ML SDV ONE (10:54)
[2016-09-10] MEDS ORDERED: IOPAMIDOL (ISOVUE-370) 150 ML BTL IV ONE (10:54)
[2016-09-10] MEDS ORDERED: DIAZEPAM 5 MG TAB ONE (11:12)
[2016-09-10] MEDS ORDERED: VANCOMYCIN 1 GM in NS 250 ML IV ONE (11:30)
[2016-09-10] MEDS ORDERED: METOPROLOL TARTRATE 5 MG/5 ML INJ ONE ×2 (12:22→12:43)
--- NOTE | 2016-09-10 12:41 | POSTOPPROG ---
Post Op Note Date of Operation: 09/10/16 Surgeon: Milad Aragon Anesthesia: IV Sedation, Local (Specify) Pre-op Diagnosis: SSS Post-op Diagnosis: SSS Indication: SSS Procedure: Single chamber PPM Inf/Abcess present in the surg proc area at time of surgery?: No Depth: Superfical (Skin SQ) EBL: Minimal Complications: None.
--- NOTE | 2016-09-10 13:10 | CPIP ---
[f rep st] INVASIVE CARDIAC PROCEDURE DATE OF PROCEDURE: 09/10/2016 INDICATIONS: The patient is a pleasant 89-year-old male. He has a history of chronic atrial fibrill ation with sick sinus syndrome. Previous Holter monitoring has indicated pauses in excess of 3.2 sec onds. He presents now with an episode of syncope. PROCEDURE: Implantation of a single-chamber pacemaker. TECHNIQUE: Following informed consent and after the administration of prophylactic antibiotics, the patient was brought to the cardiac catheterization laboratory in a fasting state. Left chest was pre pped and draped in the usual sterile fashion. A venogram was performed, easily identifying a widely patent axillary subclavian system. 2% lidocain e was infiltrated in the skin below the left clavicle. Using a #10 blade, a 3 cm incision was made i n the skin. Blunt and sharp dissection with electrocautery for hemostasis was used to form the pacem irasema pocket. An antibiotic-soaked sponge was placed in the pocket. Using the modified Seldinger technique and under fluoroscopy, access was gained to the axillary vein at the level of 1st rib. A 0.035 J-wire was positioned, followed by a 6-[place] SafeSheath. The righ t ventricular lead was brought to the field. Initially, this lead was placed in the right ventricula r apex. Unfortunately, after initially achieving excellent capture and sensing, thresholds gradually deteriorated. Therefore, this lead was repositioned along the septum and eventually back into the l eft ventricular apex. Finally, we achieved excellent capture and sensing. The sheath was then torn away and the lead secured to the pacemaker pocket floor with 0 Ethibond. At this point, the antibiotic-soaked sponge was removed from the pocket. The pocket was irrigated wi th vancomycin-containing solution. The device was brought to the field. The lead was identified by serial number and affixed to the header. The device was then placed in the pocket. The pocket was t hen infiltrated with D-Stat. The pocket was then closed with 3 layers, initially using 2 layers of i nterrupted suture with 2-0 and 3-0 Vicryl and finally, running 3-0 StrataFix for the skin. Steri-Str ips and a dry dressing were applied. COMPLICATIONS: None. DEVICE INFORMATION: The pacemaker is a [employer], model #[id number], serial #[id number]. The right v entricular lead is [employer] [id number] 52 cm lead, serial #[id number]. Sensed R-waves were 5.5 mV, lead impedance 597 ohms, threshold 0.4 V at 0.5 milliseconds. DISPOSITION: The patient will be transferred back to telemetry. He will be monitored overnight. /[id number]/MODL
--- NOTE | 2016-09-10 15:41 | DX ---
Portable Chest, 1512 History: Post pacemaker placement Comparison: Yesterday Findings: A new left chest wall posterior device with unipolar pacer lead is seen overlying the right ventricle of the enlarged heart. There is no pneumothorax. Diffuse interstitial disease is again pre sent and of uncertain acuity. It could possibly represent interstitial pulmonary edema. EKG leads ov erlie the chest. Impression: Excellent pacer placement without pneumothorax. Suspect interstitial pulmonary edema.
[2016-09-10] MEDS ORDERED: FUROSEMIDE 20 MG/2 ML VIAL IVP ONE (15:47)
--- NOTE | 2016-09-10 16:23 | HOSPPROG ---
Hospitalist Progress Note Assessment/Plan: 89 yo M w AF, fall, fever fever: no localizing sx cxr, ruq u/s and influenza all unremarkable falls: h/o pauses pacer today pt/ot evals AF: permanent on dilt proph: had been on coumadin check inr code: dnr dispo: inpt Subjective: s/p single lead pacer. tele: not pacing (interp by me). case d/w dr tabares Objective: Vital Signs Temp Pulse Resp BP Pulse Ox 36.3 C 118 H 12 115/85 H 90 L 09/10/16 14:41 09/10/16 14:41 09/10/16 14:41 09/10/16 14:41 09/10/16 14:41 Laboratory Results 09/10/16 04:00 09/10/16 04:00 09/09/16 09/10/16 09/11/16 05:59 05:59 05:59 Intake Total 2440 1580 Output Total 1000 2300 250 Balance 1440 -720 -250 PT 23.4 SEC (12.0-15.0) H 09/10/16 04:00 INR 2.07 (0.83-1.16) H 09/10/16 04:00 - Physical Exam Constitutional: no apparent distress, appears nourished Eyes: PERRL, anicteric sclera Ears, Nose, Mouth, Throat: moist mucous membranes, hearing normal Cardiovascular: regular rate and rhythym, no murmur, rub, or gallop Respiratory: no respiratory distress, no rales or rhonchi Gastrointestinal: normoactive bowel sounds, soft, non-tender abdomen Genitourinary: no bladder fullness, No douglas in urethra Skin: warm Musculoskeletal: full muscle strength ICD10 Worksheet Patient Problems: Problems Problem Status Diagnosed Atrial fibrillation with tachycardic ventricular rate Acute Confusion Acute Dizziness Acute Failure to thrive Acute Neck strain Acute Scalp contusion Acute Acute exacerbation of congestive heart failure Acute Chest pain Acute Congestive heart failure Acute Frequent falls Acute Head injury Acute Palliative care encounter Acute Pneumonia Acute
[2016-09-10] MEDS: ATORVASTATIN CALCIUM 40 MG TAB PO SCH (17:37)
[2016-09-10] MEDS: METOPROLOL TARTRATE 25 MG TAB PO SCH (22:01)
[2016-09-11 05:11] LABS: % IMMATURE GRANULYOCYTES 0.4 % (0.0-1.1); ABSOLUTE IMMATURE GRANULOCYTES 0.03 10^3/uL (0.00-0.10); ADD DIFF? NO; ADD MORPH? NO; ADD SCAN? NO; ATYPICAL LYMPHOCYTE FLAG 20 (0-99); FRAGMENT RBC FLAG 0 (0-99); HEMATOCRIT 37.5 % (40.0-51.0); HEMOGLOBIN 12.2 g/dL (13.7-17.5); LEFT SHIFT FLG 0 (0-99); LIPEMIA HEMOLYSIS FLAG 80 (0-99); MEAN CELL HEMOGLOBIN 30.3 pg (27.9-34.1); MEAN CELL HEMOGLOBIN CONCENTR. 32.5 g/dL (32.4-36.7); MEAN CELL VOLUME 93.3 fL (81.5-99.8); MEAN PLATELET VOLUME 9.7 fL (8.7-11.7); PLATELET CLUMPS FLAG 10 (0-99); PLATELET COUNT 250 10^3/uL (150-400); RED BLOOD CELL COUNT 4.02 10^6/uL (4.40-6.38); RED CELL DISTRIBUTION WIDTH 14.8 % (11.5-15.2)
[2016-09-11] MEDS: ACETAMINOPHEN 325 MG TAB PO PRN ×3 (05:56→20:13)
[2016-09-11 06:00] LABS: ALANINE AMINOTRANSFERASE 120 IU/L (21-72); ALBUMIN 2.5 g/dL (3.5-5.0); ALKALINE PHOSPHATASE 121 IU/L (38-126); ANION GAP 7 mEq/L (8-16); ASPARTATE AMINOTRANSFERASE 91 IU/L (17-59); BILIRUBIN,TOTAL 1.2 mg/dL (0.1-1.4); BILIRUBIN-CONJUGATED 0.5 mg/dL (0.0-0.5); BILIRUBIN-UNCONJUGATED 0.7 mg/dL (0.0-1.1); CALCIUM 8.1 mg/dL (8.5-10.4); CARBON DIOXIDE 26 mEq/l (22-31); CHLORIDE 108 mEq/L (97-110); CREATININE 0.9 mg/dL (0.7-1.3); GLOMERULAR FILTRATION RATE > 60; GLUCOSE 109 mg/dL (70-100); POTASSIUM 4.5 mEq/L (3.5-5.2); SODIUM 141 mEq/L (134-144); TOTAL PROTEIN 5.5 g/dL (6.3-8.2)
[2016-09-11] MEDS: PRESERVISION AREDS2 FORMULA EYE VIT 1 EACH PO SCH ×2 (08:33→17:07)
[2016-09-11] MEDS: METHENAMINE HIPP 1 GM TAB PO SCH ×2 (08:34→20:09)
[2016-09-11] MEDS: METOPROLOL TARTRATE 25 MG TAB PO SCH ×2 (08:36→20:08)
[2016-09-11] MEDS: OMEGA-3 FATTY ACIDS 1,000 MG CAP PO SCH ×2 (08:36→20:08)
--- NOTE | 2016-09-11 09:11 | CPEKG ---
Heart Rate: 123 RR Interval: 488 QRSD Interval: 126 QT Interval: 348 QTC Interval: 498 QRS [place]: -39 T Wave [place]: 19 EKG Severity - ABNORMAL ECG - EKG Impression: ATRIAL FIBRILLATION, V-RATE 77-147 EKG Impression: RIGHT BUNDLE BRANCH BLOCK Electronically Signed By: Jeffrey Koo 11-Sep-2016 11:06:24
[2016-09-11] MEDS ORDERED: DIGOXIN 50 MCG/ML UDSYR PO SCH (10:00)
--- NOTE | 2016-09-11 10:40 | SOAPPROG ---
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 This was associated with a subsequent fall. Yesterday he underwent implantation of a single-chamber pacemaker. He appears to be doing well today. Plan: 1. I have added digoxin to his medications for additional rate control. 2. Will continue systemic anticoagulation. 3. Once he gets his chest x-ray and his device placement is confirmed I think that he can be discharged home. 4. He can follow up with me or Dr. Medrano as an outpatient. 5. Restart Warfarin. INR today. 09/11/16 10:44 Subjective: He appears to be doing well today. He has very minimal pain in his implantation site. His device was interrogated earlier today. That interrogation demonstrated normal thresholds and normal device function. His heart rates are not adequately controlled at the present time. Objective: Vital Signs Temp Pulse Resp BP Pulse Ox 36.3 C 103 H 17 89/63 L 94 09/11/16 07:47 09/11/16 07:47 09/11/16 07:47 09/11/16 07:47 09/11/16 07:47 Laboratory Results 09/11/16 04:49 09/11/16 04:49 09/10/16 09/11/16 09/12/16 05:59 05:59 05:59 Intake Total 1580 300 Output Total 2300 850 400 Balance -720 -550 -400 PT 23.4 SEC (12.0-15.0) H 09/10/16 04:00 INR 2.07 (0.83-1.16) H 09/10/16 04:00 ICD10 Worksheet Patient Problems: Problems Problem Status Diagnosed Atrial fibrillation with tachycardic ventricular rate Acute Confusion Acute Dizziness Acute Failure to thrive Acute Neck strain Acute Scalp contusion Acute Acute exacerbation of congestive heart failure Acute Chest pain Acute Congestive heart failure Acute Frequent falls Acute Head injury Acute Palliative care encounter Acute Pneumonia Acute
--- NOTE | 2016-09-11 10:47 | HOSPPROG ---
Hospitalist Progress Note Assessment/Plan: 89 yo M w AF, fall, fever fever: no localizing sx cxr, ruq u/s and influenza all unremarkable falls: h/o pauses pacer yesterda pt/ot evals rec snf AF: permanent on BB< dig added elevated lft's: u/s pretty unremarkable stably elevated limit tylenol (takes a lot as outpt) no further workup- discussed w family proph: had been on coumadin check inr code: dnr dispo: inpt Subjective: CASE D/W DR TITUS. tele: af not paced (interp by me) Objective: Vital Signs Temp Pulse Resp BP Pulse Ox 36.3 C 103 H 17 89/63 L 94 09/11/16 07:47 09/11/16 07:47 09/11/16 07:47 09/11/16 07:47 09/11/16 07:47 Laboratory Results 09/11/16 04:49 09/11/16 04:49 09/10/16 09/11/16 09/12/16 05:59 05:59 05:59 Intake Total 1580 300 Output Total 2300 850 400 Balance -720 -550 -400 PT 23.4 SEC (12.0-15.0) H 09/10/16 04:00 INR 2.07 (0.83-1.16) H 09/10/16 04:00 - Physical Exam Constitutional: no apparent distress, appears nourished Eyes: PERRL, anicteric sclera Ears, Nose, Mouth, Throat: moist mucous membranes, hearing normal Cardiovascular: no murmur, rub, or gallop, irregularly irregular Respiratory: no respiratory distress, no rales or rhonchi Gastrointestinal: normoactive bowel sounds, soft, non-tender abdomen Genitourinary: No douglas in urethra Skin: warm, normal color Musculoskeletal: full muscle strength, no muscle tenderness, other (no pacer pocket hematoma) Neurologic: AAOx3 ICD10 Worksheet Patient Problems: Problems Problem Status Diagnosed Atrial fibrillation with tachycardic ventricular rate Acute Confusion Acute Dizziness Acute Failure to thrive Acute Neck strain Acute Scalp contusion Acute Acute exacerbation of congestive heart failure Acute Chest pain Acute Congestive heart failure Acute Frequent falls Acute Head injury Acute Palliative care encounter Acute Pneumonia Acute
[2016-09-11 11:38] LABS: INR 2.25 (0.83-1.16); PROTIME(PATIENT) 25.1 SEC (12.0-15.0)
[2016-09-11] MEDS: DIGOXIN 125 MCG TAB PO SCH (11:58)
--- NOTE | 2016-09-11 16:16 | DX ---
PA and lateral chest. 09/11/2016. Clinical History: Pacemaker placement. Comparison Study: 09/10/2016. Findings: Decreasing interstitial thickening is present within both lungs from one day earlier compat ible with decreasing interstitial pulmonary edema. Cardiac silhouette remains moderately prominent.. Single generator left subclavian transvenous pacemaker is unchanged in appearance, without pneumothor ax. Underlying hyperinflation is compatible with COPD. Impression: Left subclavian transvenous pacemaker without pneumothorax. Resolving interstitial pulmon k[place] edema. COPD.
[2016-09-11] MEDS: ATORVASTATIN CALCIUM 40 MG TAB PO SCH (17:07)
[2016-09-11] MEDS: WARFARIN SODIUM 5 MG TAB PO SCH (17:09)
[2016-09-12] MEDS: ACETAMINOPHEN 325 MG TAB PO PRN (04:03)
[2016-09-12 05:44] LABS: INR 1.99 (0.83-1.16); PROTIME(PATIENT) 22.7 SEC (12.0-15.0)
[2016-09-12 07:07] VITALS: TEMP 97.3
[2016-09-12] MEDS ORDERED: DIGOXIN 500 MCG/2 ML AMP IVP ONE ×2 (09:41→10:30)
--- NOTE | 2016-09-12 09:45 | SOAPPROG ---
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 This was associated with a subsequent fall. He is status post implantation of a single-chamber pacemaker. He appears to be doing well. There have been no identified complications from device implantation. His atrial fibrillation is still not adequately rate controlled. Plan: 1. Will plan to continue his digoxin for rate control. I did add a single IV dose today in light of his poor rate control . 2. I have started him on a standing dose of p.o. Lasix. 3. At this point, I think he is stable for transfer to a rehab facility. 4. I will sign off. As an outpatient, he can follow up with Dr. Medrano . 5. He does need to be seen in our office in about 7-10 days for wound check and for a device interrogation. 09/12/16 09:44 Subjective: Today he has minimal complaints. He has mild pain at his left chest where his pacemaker was implanted. He denies dyspnea. He is currently investigating options for outpatient rehab. Objective: Vital Signs Temp Pulse Resp BP Pulse Ox 36.3 C 135 H 17 105/78 93 09/12/16 07:03 09/12/16 07:03 09/12/16 07:03 09/12/16 07:03 09/12/16 07:03 Laboratory Results 09/11/16 04:49 09/11/16 04:49 09/11/16 09/12/16 09/13/16 05:59 05:59 05:59 Intake Total 300 1140 320 Output Total 850 1400 Balance -550 -260 320 PT 22.7 SEC (12.0-15.0) H 09/12/16 04:17 INR 1.99 (0.83-1.16) H 09/12/16 04:17 Physical Exam - Physical Exam General Appearance: WD/WN, no apparent distress Neck: non-tender, full range of motion Respiratory: lungs clear, No crackles, No rales, No rhonchi Cardiac/Chest: irregularly irregular, other (His pacemaker implantation site is soft without evidence of hematoma), No edema, No gallop, No JVD Peripheral Pulses: 2+: carotid (R), carotid (L) Abdomen: non-tender, soft Neuro/Psych: normal mood/affect, oriented x 3 ICD10 Worksheet Patient Problems: Problems Problem Status Diagnosed Atrial fibrillation with tachycardic ventricular rate Acute Confusion Acute Dizziness Acute Failure to thrive Acute Neck strain Acute Scalp contusion Acute Acute exacerbation of congestive heart failure Acute Chest pain Acute Congestive heart failure Acute Frequent falls Acute Head injury Acute Palliative care encounter Acute Pneumonia Acute
[2016-09-12] MEDS ORDERED: FUROSEMIDE 20 MG TAB PO SCH (10:00)
[2016-09-12] MEDS: OMEGA-3 FATTY ACIDS 1,000 MG CAP PO SCH (10:09)
[2016-09-12] MEDS: METOPROLOL TARTRATE 25 MG TAB PO SCH (10:10)
[2016-09-12] MEDS: PRESERVISION AREDS2 FORMULA EYE VIT 1 EACH PO SCH ×2 (10:10→17:18)
[2016-09-12] MEDS: METHENAMINE HIPP 1 GM TAB PO SCH (10:11)
--- NOTE | 2016-09-12 10:16 | PDIAF ---
- Diagnosis Diagnosis: atrial fibrillation, bradycardia Code Status: Do Not Resuscitate - Medication Management Discharge Medications: Medications to Continue on Transfer Acetaminophen [Tylenol 325mg (*)] 650 mg PO DAILY PRN 11/01/13 [Last Taken 09/07 09:00] Warfarin Sodium [Coumadin 5MG (*)] 5 mg PO DAILY@16 11/01/13 [Last Taken 16:00] Atorvastatin Calcium [Lipitor 40 mg (*)] 40 mg PO DAILY@16 01/06/15 [Last Taken 09/07/16 16:00] Methenamine Mandelate [METHENAMINE MANDELATE] 0.5 tab PO BID 01/06/15 [Last Taken 09/07/16 16:00] Colchicine [Colcrys] 0.6 mg PO DAILY PRN 10/29/15 [Last Taken 09/05/16] [place]-3 Fatty Acids [Fish Oil 1000 mg (*)] 1,000 mg PO BID 10/29/15 [Last Taken 09/07/16 16:00] Vit A/Vit C/Vit E/Zinc/Copper [Preservision Areds Softgel] 1 cap PO BID [Last Taken 09/07/16 16:00] Digoxin [Lanoxin 125 mcg (RX)] 125 mcg PO DAILY10 #0 tab 09/12/16 [Last Taken Unknown] Furosemide [Lasix 20 MG (*)] 20 mg PO DAILY #0 tab 09/12/16 [Last Taken Unknown] Metoprolol Tartrate [Lopressor 25 mg (*)] 25 mg PO BID #0 tab 09/12/16 [Last Taken Unknown] Discharge Medications: Refer to the Discharge Home Medication list for PRN reason. - Orders Services needed: Registered Nurse, Physical Therapy, Occupational Therapy Wound Care Instructions: pacer wound. follow up at [facility] 09/19-09/23 for wound check. any provider. primary event marketing assistant is dr collado - Labs/Radiology BMP Date: 09/17/16 - Follow Up Care Current Providers and Referrals: Patient,NotPresent [Unknown] - As per Instructions Milad Aragon MD [Medical Doctor] -
[2016-09-12] MEDS: DIGOXIN 125 MCG TAB PO SCH (10:25)
--- NOTE | 2016-09-12 10:29 | GDS ---
[f rep st] DISCHARGE SUMMARY DISCHARGE DIAGNOSES: 1. Fall felt secondary to symptomatic bradycardia with pauses, status post pacemaker. 2. Permanent atrial fibrillation. 3. Chronic systolic heart failure. 4. Infrarenal aortic aneurysm. 5. Deafness. 6. Diabetes, not on medications. 7. History of pulmonary embolism, on anticoagulation. Please see admission history and physical by Dr. Tiffany Peña. HISTORY OF PRESENT ILLNESS: The patient presented with a fall. HOSPITAL COURSE: He was seen by Cardiology and was thought to be a candidate for a pacemaker. He clay d a low-grade temperature. Infectious workup was unremarkable. He was influenza negative. He was noted to have modestly elevat ed LFTs that remained stable while here. Right upper quadrant ultrasound showed some sludge. No dixie dence of cholecystitis. He did not have a Kendrick sign. He underwent plate pacemaker placement on September 10, 2016. The patient was seen by physical and occupational therapy, felt appropriate for SNF. He is being discharged to SNF today. /[id number]/MODL
[2016-09-12 15:14] VITALS: BP 123/64; PULSE 87; RESP 18; O2SAT 98
[2016-09-12] MEDS: WARFARIN SODIUM 5 MG TAB PO SCH (17:18)
[2016-09-12] MEDS: ATORVASTATIN CALCIUM 40 MG TAB PO SCH (17:18)
== END 2016-09-12 17:35 | DRG 243 ==
LOC: EDUNIT# → F2W 21:39
PROVIDERS: ADMIT Hospitalist; ATTEND Internal Medicine
PROC: 0JH604Z Insertion of Pacemaker, Single Chamber into Chest Subcutaneous Tissue and Fascia, Open Approach (ICD-10-PCS; principal; 2016-09-10)
PROC: 02HK3JZ Insertion of Pacemaker Lead into Right Ventricle, Percutaneous Approach (ICD-10-PCS; principal; 2016-09-10)
DX: I49.5 Sick sinus syndrome (principal); S16.1XXA Strain of muscle, fascia and tendon at neck level, initial encounter; S00.03XA Contusion of scalp, initial encounter; I13.0 Hypertensive heart and chronic kidney disease with heart failure and stage 1 through stage 4 chronic kidney disease, or unspecified chronic kidney disease; I50.22 Chronic systolic (congestive) heart failure; N18.9 Chronic kidney disease, unspecified; R55 Syncope and collapse; I48.2 Chronic atrial fibrillation; I25.10 Atherosclerotic heart disease of native coronary artery without angina pectoris; I71.9 Aortic aneurysm of unspecified site, without rupture; E11.9 Type 2 diabetes mellitus without complications; E78.5 Hyperlipidemia, unspecified; H91.90 Unspecified hearing loss, unspecified ear; W19.XXXA Unspecified fall, initial encounter; Y92.019 Unspecified place in single-family (private) house as the place of occurrence of the external cause; Z66 Do not resuscitate; Z86.711 Personal history of pulmonary embolism; Z79.01 Long term (current) use of anticoagulants; Z95.5 Presence of coronary angioplasty implant and graft
CPT/HCPCS: 96365; 97116-GP; 97162-GP; 97165-GO; 97530-GP; 97535-GO; A4649; C1786; J1160; J2250; J3010; J3370; Q9967

== ENCOUNTER 2016-09-25 14:35 | Emergency (ER) | payer OTHER ==
--- NOTE | 2016-09-25 14:38 | EDPHY ---
H & P HPI/ROS: CHIEF COMPLAINT: Dizziness, nausea, shortness of breath. Limitations: hearing loss, some of the history is through the patient's family HISTORY OF PRESENT ILLNESS: Patient is an 89-year-old male with a history of atrial fibrillation, s/p recent pacemaker placement, presenting with a concern about his pacemaker. He was admitted in September 2016 for dizziness and a pacemaker was placed on 09/10/2016 for episodes of symptomatic bradycardia. He was discharged home with a new prescription for beta blockers. Since discharge home, he has been excessively fatigued, according to his son. Per EMS, staff at his snf facility have been measuring his heart rate and noted him to be swinging between bradycardia and tachycardia, causing them to alert EMS. He has ongoing intermittent dizziness, nausea, and shortness of breath, without apparent change. He gets dizzy with movement and has been having intermittent nausea and shortness of breath. He is anticoagulated on Warfarin. REVIEW OF SYSTEMS: Constitutional: No fever, no chills Eyes: No visual changes ENT: No sore throat Respiratory: No cough Cardiac: No chest pain Gastrointestinal: no vomiting, no abdominal pain Genitourinary: no dysuria Musculoskeletal: No leg pain or swelling Skin: No rash Neurological: No headache Psychiatric: No depression Past Medical/Surgical History: Non-insulin diabetes, hearing loss, atrial fibrillation, pacemaker. Social History: Lives at a snf facility. Physical Exam: General Appearance: Alert, no distress, oxygen saturation 94% on RA Eyes: Pupils equal and round, no conjunctival pallor ENT, Mouth: Mucous membranes moist Neck: Normal inspection Respiratory: Lungs are clear to auscultation Cardiovascular: Regular rate and rhythm Gastrointestinal: Abdomen is soft and non-tender Neurological: A&O, nonfocal exam Skin: Warm and dry, no rash Extremities: Nontender, no pedal edema Psychiatric: Mood and affect normal Constitutional: Initial Vital Signs Temperature (C) 36.9 C 09/25/16 14:51 Heart Rate 85 09/25/16 14:51 Respiratory Rate 16 09/25/16 14:51 Blood Pressure 162/110 H 09/25/16 14:51 O2 Sat (%) 90 L 09/25/16 14:51 O2 Delivery Mode Nasal Cannula O2 (L/minute) 2 Allergies/Adverse Reactions: amoxicillin trihydrate [From Augmentin] Allergy (Severe, Verified 07/01/16 12:13 ) Hives hydrocodone [Hydrocodone] Allergy (Severe, Verified 07/01/16 12:13) Hives levofloxacin [From Levaquin] Allergy (Severe, Verified 07/01/16 12:13) Hives Potassium Chloride [From Klor-Con] Allergy (Severe, Verified 07/01/16 12:13) ANKLE SWELLING potassium clavula *RETIRED-04/13/12 [From Augmentin] Allergy (Severe, Verified 07/01/16 12:13) Hives furosemide [From Lasix] Allergy (Unknown, Verified 07/01/16 12:13) JOINT PAIN Sulfa (Sulfonamide Antibiotics) Allergy (Unknown, Verified 07/01/16 12:13) NAUSEA, VOMITING triamterene [Triamterene] Allergy (Unknown, Verified 07/01/16 12:13) Unknown Home Medications: Medication Instructions Recorded Acetaminophen [Tylenol 325mg (*)] 650 mg PO DAILY PRN 11/01/13 Warfarin Sodium [Coumadin 5MG (*)] 5 mg PO DAILY@16 11/01/13 Atorvastatin Calcium [Lipitor 40 40 mg PO DAILY@16 01/06/15 mg (*)] Methenamine Mandelate [METHENAMINE 0.5 tab PO BID 01/06/15 MANDELATE] Colchicine [Colcrys] 0.6 mg PO DAILY PRN 10/29/15 [place]-3 Fatty Acids [Fish Oil 1000 1,000 mg PO BID 10/29/15 mg (*)] Vit A/Vit C/Vit E/Zinc/Copper 1 cap PO BID 10/29/15 [Preservision Areds Softgel] Digoxin [Lanoxin 125 mcg (RX)] 125 mcg PO DAILY10 #0 tab 09/12/16 Furosemide [Lasix 20 MG (*)] 20 mg PO DAILY #0 tab 09/12/16 Metoprolol Tartrate [Lopressor 25 25 mg PO BID #0 tab 09/12/16 mg (*)] Medical Decision Making - Diagnostics EKG Interpretation: EKG interpreted by me reveals atrial fibrillation with a controlled rate. IVCD. Interpretation: abnormal EKG Imaging: Chest x-ray reviewed by Dr. Mccoy, radiology, reveals: 1. No pneumothorax. 2. Minimal additional edema unchanged. ED Course/Re-evaluation: An IV was established and labs ordered. Chest x-ray, EKG obtained. Patient's pacemaker career representative has been contacted for interrogation. 1505: I spoke to the patient's son who is now at bedside. He tells me he has been in his snf facility for 2 weeks and has been increasingly fatigued since moving. He reports that the dizziness and nausea spells are fairly frequent for the patient and that he was sent to the hospital today due to irregularities in heart rate. The pacemaker career representative is en route. 1705: Reassessed patient. His pacemaker was interrogated and found to be normal. There were no episodes of tachycardia or bradycardia noted. He would like to go home. I feel that this is a safe plan for this pt. His pacemaker is functioning normally and he otherwise has no acute concerns. Consider change in betablocker, as this is likely causing excessive fatigue. He understands to follow up with his zoning administrator. Differential Diagnosis: Dizziness including but not limited to bradycardia, hypotension, rapid atrial fibrillation, pacemaker malfunction peripheral and central causes of vertigo, orthostatic causes including dehydration, and blood loss. - Data Points Laboratory Results: Laboratory Results 09/25/16 14:47 09/25/16 14:47 Departure - Departure Disposition: Home, Routine, Self-Care Clinical Impression: Dizziness Condition: Good Instructions: Dizziness (ED) Additional Instructions: Call your zoning administrator tomorrow to set up a follow up appointment. Return to the emergency department if you experience any serious worsening of condition. Referrals: Haroon Santiago [Primary Care Provider] - As per Instructions Report Scribed for: Maricarmen Auguste Report Scribed by: Oliver Kim Date of Report: 09/25/16 Time of Report: 14:38 Physician Review and Approval Statement: 09/25/16 15:03 Portions of this note were transcribed by a center medical and lab director. I personally performed a history, physical exam, medical decision making, and confirmed accuracy of information the transcribed note.
[2016-09-25 14:54] VITALS: RESP 16; TEMP 98.4
[2016-09-25 14:57] LABS: % IMMATURE GRANULYOCYTES 0.4 % (0.0-1.1); ABSOLUTE IMMATURE GRANULOCYTES 0.03 10^3/uL (0.00-0.10); ADD DIFF? NO; ADD MORPH? NO; ADD SCAN? NO; ATYPICAL LYMPHOCYTE FLAG 0 (0-99); FRAGMENT RBC FLAG 0 (0-99); HEMOGLOBIN 15.3 g/dL (13.7-17.5); LEFT SHIFT FLG 0 (0-99); LIPEMIA HEMOLYSIS FLAG 80 (0-99); MEAN CELL HEMOGLOBIN 29.4 pg (27.9-34.1); MEAN CELL HEMOGLOBIN CONCENTR. 32.6 g/dL (32.4-36.7); MEAN CELL VOLUME 90.4 fL (81.5-99.8); MEAN PLATELET VOLUME 9.7 fL (8.7-11.7); PLATELET CLUMPS FLAG 10 (0-99); PLATELET COUNT 327 10^3/uL (150-400); RED CELL DISTRIBUTION WIDTH 14.9 % (11.5-15.2)
--- NOTE | 2016-09-25 15:10 | CPEKG ---
Heart Rate: 89 RR Interval: 674 QRSD Interval: 120 QT Interval: 384 QTC Interval: 468 QRS [place]: -41 T Wave [place]: -13 EKG Severity - ABNORMAL ECG - EKG Impression: ATRIAL FIBRILLATION, V-RATE 61-113 EKG Impression: IVCD, CONSIDER ATYPICAL RBBB Electronically Signed By: Maricarmen Auguste 25-Sep-2016 21:21:02
[2016-09-25 15:16] LABS: INR 2.31 (0.83-1.16); PROTIME(PATIENT) 25.6 SEC (12.0-15.0)
[2016-09-25 15:16] LABS: ANION GAP 12 mEq/L (8-16); CALCIUM 9.2 mg/dL (8.5-10.4); CARBON DIOXIDE 27 mEq/l (22-31); CHLORIDE 105 mEq/L (97-110); CREATININE 1.1 mg/dL (0.7-1.3); GLOMERULAR FILTRATION RATE > 60; GLUCOSE 115 mg/dL (70-100); POTASSIUM 4.5 mEq/L (3.5-5.2); SODIUM 144 mEq/L (134-144)
[2016-09-25 15:28] LABS: TROPONIN I 0.018 ng/mL (0-0.034)
[2016-09-25 17:02] VITALS: O2SAT 91
[2016-09-25 17:25] VITALS: BP 131/85; PULSE 87
== END 2016-09-25 17:20 | disposition home or self-care (01) ==
LOC: EDUNIT#
DX: R42 Dizziness and giddiness (principal); E11.9 Type 2 diabetes mellitus without complications; Z95.0 Presence of cardiac pacemaker; Z79.01 Long term (current) use of anticoagulants

== ENCOUNTER 2016-10-10 11:31 | Inpatient (IN) | payer OTHER ==
--- NOTE | 2016-10-10 11:38 | CPEKG ---
Heart Rate: 75 RR Interval: 800 QRSD Interval: 130 QT Interval: 400 QTC Interval: 447 QRS [place]: -28 T Wave [place]: 2 EKG Severity - ABNORMAL ECG - EKG Impression: ATRIAL FIBRILLATION EKG Impression: RIGHT BUNDLE BRANCH BLOCK Electronically Signed By: Guille Hernandez 10-Oct-2016 14:23:33
--- NOTE | 2016-10-10 11:39 | EDPHY ---
H & P Stated Complaint: syncope Time Seen by Provider: 10/10/16 11:35 HPI/ROS: CHIEF COMPLAINT: Syncope, back pain HISTORY OF PRESENT ILLNESS: The patient presents to the ED with complaints of syncope and back pain. The patient has a history of atrial fibrillation is currently anticoagulated. 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 The patient was brought to the ED emergently by paramedics. The patient was noted not to be hypotensive or tachycardic and route. The patient is in chronic atrial fibrillation. The patient presents to the ED with complaints of a very vague mild back pain. He denies fall or trauma. He denies chest pain or difficulty breathing. REVIEW OF SYSTEMS: A comprehensive 10 point review of systems is otherwise negative aside from elements mentioned in the history of present illness. Source: Patient Exam Limitations: No limitations - Personal History Current Tetanus/Diphtheria Vaccine: Unsure Tetanus Vaccine Date: < 10 years - Medical/Surgical History Hx Asthma: No Hx Chronic Respiratory Disease: No Hx Diabetes: Yes Hx Cardiac Disease: Yes Hx Renal Disease: Yes Hx Cirrhosis: No Hx Alcoholism: Yes Hx HIV/AIDS: No Hx Splenectomy or Spleen Trauma: No Other PMH: afib, systolic heart failure, infrarenal AAA, DM, dyslipidemia, HTN, CKD, PE on chronic anticoagulation, BPH, back pain, sleep apnea - Social History Smoking Status: Former smoker - Physical Exam Exam: General Appearance: Elderly, hearing impaired, no acute distress Eyes: Pupils equal and round no pallor or injection ENT, Mouth: Mucous membranes moist Respiratory: There are no retractions, lungs are clear to auscultation, pacemaker insertion site clean dry and intact Cardiovascular: Regular rate and rhythm Gastrointestinal: Abdomen is soft and nontender, no masses, bowel sounds normal Neurological: A&O, normal motor function, normal sensory exam, normal cranial nerves Skin: Warm and dry, no rashes Musculoskeletal: Neck is supple nontender Extremities: symmetrical, full range of motion, 2+ pulses noted all 4 extremities Constitutional: Initial Vital Signs Temperature (C) 36.3 C 10/10/16 11:33 Heart Rate 80 10/10/16 11:33 Respiratory Rate 16 10/10/16 11:33 Blood Pressure 140/89 H 10/10/16 11:33 O2 Sat (%) 100 10/10/16 11:33 O2 Delivery Mode Room Air Allergies/Adverse Reactions: amoxicillin trihydrate [From Augmentin] Allergy (Severe, Verified 07/01/16 12:13 ) Hives hydrocodone [Hydrocodone] Allergy (Severe, Verified 07/01/16 12:13) Hives levofloxacin [From Levaquin] Allergy (Severe, Verified 07/01/16 12:13) Hives Potassium Chloride [From Klor-Con] Allergy (Severe, Verified 07/01/16 12:13) ANKLE SWELLING potassium clavula *RETIRED-04/13/12 [From Augmentin] Allergy (Severe, Verified 07/01/16 12:13) Hives furosemide [From Lasix] Allergy (Unknown, Verified 07/01/16 12:13) JOINT PAIN Sulfa (Sulfonamide Antibiotics) Allergy (Unknown, Verified 07/01/16 12:13) NAUSEA, VOMITING triamterene [Triamterene] Allergy (Unknown, Verified 07/01/16 12:13) Unknown Home Medications: Medication Instructions Recorded Acetaminophen [Tylenol 325mg (*)] 650 mg PO DAILY PRN 11/01/13 Warfarin Sodium [Coumadin 5MG (*)] 5 mg PO DAILY@16 11/01/13 Atorvastatin Calcium [Lipitor 40 40 mg PO DAILY@16 01/06/15 mg (*)] Methenamine Mandelate [METHENAMINE 0.5 tab PO BID 01/06/15 MANDELATE] Colchicine [Colcrys] 0.6 mg PO DAILY PRN 10/29/15 [place]-3 Fatty Acids [Fish Oil 1000 1,000 mg PO BID 10/29/15 mg (*)] Vit A/Vit C/Vit E/Zinc/Copper 1 cap PO BID 10/29/15 [Preservision Areds Softgel] Digoxin [Lanoxin 125 mcg (RX)] 125 mcg PO DAILY10 #0 tab 09/12/16 Bisacodyl [Dulcolax] 10 mg RC DAILY PRN 10/10/16 Omeprazole [Prilosec 20 mg] 20 mg PO DAILY 10/10/16 Ondansetron Odt [Zofran Odt 4 mg 4 mg PO Q8H PRN 10/10/16 (*)] Polyethylene Glycol 3350 [Miralax 17 gm PO DAILY PRN 10/10/16 17 gm (*)] Sennosides/Docusate Sodium 1 each PO BID 10/10/16 [Senna-Docusate Sodium Tablet] Medical Decision Making - Diagnostics EKG Interpretation: EKG: Complete interpretation has been separately recorded in the [facility] archive. Summary impression: Atrial fibrillation, right bundle branch block, no acute ischemic changes Imaging: CT angiogram chest: Negative for dissection, pulmonary embolism or other significant explanation for back pain. Images reviewed by myself and discussed with radiologist Dr. Samuel Sandra. CT angiogram abdomen: Negative for aneurysm or rupture, retroperitoneal hemorrhage or other explanation for acute back pain. Images reviewed by myself and discussed with radiologist Dr. Samuel Sandra. ED Course/Re-evaluation: The patient presents to the ED after an episode of presyncope in back pain. The patient was brought into the resuscitation room. He was noted to be hemodynamically stable upon arrival. He is in chronic atrial fibrillation. The patient was taken for a stat CT scan of his chest and abdomen which demonstrates no evidence of dissection, retroperitoneal hematoma or intra- abdominal hemorrhage. The patient presents to the emergency department after a witnessed syncopal event characterized by complete loss of consciousness at the instructor traffic safety office. Family reports there may have been a history of tachyarrhythmia. There is no corroborating EKG brought with the patient to demonstrate this. The patient remained stable throughout his stay in the ED. Family is quite frustrated that the patient continues to have unexplained syncope. The patient will be admitted to the hospital for further observation of recurrent arrhythmia. At this point time the patient has no complaints of acute chest pain and no evidence of ischemia on his EKG. There is no evidence of an obvious significant anemia or vascular emergency explaining his symptoms today. Consultation is made with the hospitalist service. The patient will be admitted by Dr. Worley. Differential Diagnosis: Differential diagnosis considered includes myocardial infarction, arrhythmia, critical anemia, metabolic abnormality, aortic dissection, abdominal aortic aneurysm rupture - Data Points Laboratory Results: Laboratory Results 10/10/16 11:44 10/10/16 11:44 10/10/16 10/10/16 10/10/16 11:44 11:44 11:44 WBC 5.97 10^3/uL 10^3/uL (3.80-9.50) RBC 4.96 10^6/uL 10^6/uL (4.40-6.38) Hgb 14.6 g/dL g/dL (13.7-17.5) POC Hgb Hct 44.7 % % (40.0-51.0) POC Hct MCV 90.1 fL fL (81.5-99.8) MCH 29.4 pg pg (27.9-34.1) MCHC 32.7 g/dL g/dL (32.4-36.7) RDW 14.7 % % (11.5-15.2) Plt Count 160 10^3/uL 10^3/uL (150-400) MPV 10.0 fL fL (8.7-11.7) Neut % (Auto) 65.0 % % (39.3-74.2) Lymph % (Auto) 18.3 % % (15.0-45.0) [place] % (Auto) 10.6 % % (4.5-13.0) Eos % (Auto) 5.0 % % (0.6-7.6) Baso % (Auto) 0.8 % % (0.3-1.7) Nucleat RBC Rel Count 0.0 % % (0.0-0.2) Absolute Neuts (auto) 3.88 10^3/uL 10^3/uL (1.70-6.50) Absolute Lymphs (auto) 1.09 10^3/uL 10^3/uL (1.00-3.00) Absolute Monos (auto) 0.63 10^3/uL 10^3/uL (0.30-0.80) Absolute Eos (auto) 0.30 10^3/uL 10^3/uL (0.03-0.40) Absolute Basos (auto) 0.05 10^3/uL 10^3/uL (0.02-0.10) Absolute Nucleated RBC 0.00 10^3/uL 10^3/uL (0-0.01) Immature Gran % 0.3 % % (0.0-1.1) Immature Gran # 0.02 10^3/uL 10^3/uL (0.00-0.10) PT 18.9 SEC H SEC (12.0-15.0) INR 1.58 H (0.83-1.16) POC Sodium Sodium 142 mEq/L mEq/L (134-144) POC Potassium Potassium 4.1 mEq/L mEq/L (3.5-5.2) POC Chloride Chloride 107 mEq/L mEq/L (97-110) Carbon Dioxide 25 mEq/l mEq/l (22-31) Anion Gap 10 mEq/L mEq/L (8-16) POC BUN BUN 14 mg/dL mg/dL (7-23) Creatinine 1.0 mg/dL mg/dL (0.7-1.3) POC Creatinine Estimated GFR > 60 Glucose 98 mg/dL mg/dL (70-100) POC Glucose Calcium 9.1 mg/dL mg/dL (8.5-10.4) Troponin I < 0.012 ng/mL ng/mL (0-0.034) 10/10/16 11:38 WBC RBC Hgb POC Hgb 15.3 gm/dL gm/dL (14.5-17.3) Hct POC Hct 45 % % (42.8-50.6) MCV MCH MCHC RDW Plt Count MPV Neut % (Auto) Lymph % (Auto) [place] % (Auto) Eos % (Auto) Baso % (Auto) Nucleat RBC Rel Count Absolute Neuts (auto) Absolute Lymphs (auto) Absolute Monos (auto) Absolute Eos (auto) Absolute Basos (auto) Absolute Nucleated RBC Immature Gran % Immature Gran # PT INR POC Sodium 145 mEq/L H mEq/L (134-144) Sodium POC Potassium 3.8 mEq/L mEq/L (3.3-5.0) Potassium POC Chloride 105 mEq/L mEq/L (96-108) Chloride Carbon Dioxide Anion Gap POC BUN 13 mg/dL mg/dL (7-23) BUN Creatinine POC Creatinine 1.1 mg/dL mg/dL (0.8-1.5) Estimated GFR Glucose POC Glucose 104 mg/dL H mg/dL (70-100) Calcium Troponin I Point of Care Test Results: 10/10/16 11:38 POC Sodium 145 H POC Potassium 3.8 POC Chloride 105 POC BUN 13 POC Creatinine 1.1 POC Glucose 104 H Departure - Departure Disposition: [facility] Inpatient Acute Clinical Impression: Atrial fibrillation, Syncope, Neck strain, Dizziness, Failure to thrive Condition: Fair
[2016-10-10] MEDS ORDERED: IOPAMIDOL (ISOVUE-300) 100 ML BTL IV ONE (11:44)
[2016-10-10 11:54] LABS: % IMMATURE GRANULYOCYTES 0.3 % (0.0-1.1); ABSOLUTE IMMATURE GRANULOCYTES 0.02 10^3/uL (0.00-0.10); ADD DIFF? NO; ADD MORPH? NO; ADD SCAN? NO; ATYPICAL LYMPHOCYTE FLAG 10 (0-99); FRAGMENT RBC FLAG 10 (0-99); HEMATOCRIT 44.7 % (40.0-51.0); HEMOGLOBIN 14.6 g/dL (13.7-17.5); LEFT SHIFT FLG 0 (0-99); LIPEMIA HEMOLYSIS FLAG 80 (0-99); MEAN CELL HEMOGLOBIN 29.4 pg (27.9-34.1); MEAN CELL HEMOGLOBIN CONCENTR. 32.7 g/dL (32.4-36.7); MEAN CELL VOLUME 90.1 fL (81.5-99.8); PLATELET CLUMPS FLAG 40 (0-99); PLATELET COUNT 160 10^3/uL (150-400); RED BLOOD CELL COUNT 4.96 10^6/uL (4.40-6.38); RED CELL DISTRIBUTION WIDTH 14.7 % (11.5-15.2)
[2016-10-10 12:01] LABS: INR 1.58 (0.83-1.16); PROTIME(PATIENT) 18.9 SEC (12.0-15.0)
[2016-10-10 12:08] LABS: ANION GAP 10 mEq/L (8-16); CALCIUM 9.1 mg/dL (8.5-10.4); CARBON DIOXIDE 25 mEq/l (22-31); CHLORIDE 107 mEq/L (97-110); GLOMERULAR FILTRATION RATE > 60; GLUCOSE 98 mg/dL (70-100); POTASSIUM 4.1 mEq/L (3.5-5.2); SODIUM 142 mEq/L (134-144)
[2016-10-10 12:19] LABS: TROPONIN I < 0.012 ng/mL (0-0.034)
[2016-10-10] MEDS ORDERED: ONDANSETRON DISINTEGRATING 4 MG TAB PO PRN (18:06)
[2016-10-10] MEDS ORDERED: ONDANSETRON 4 MG/2 ML VIAL IVP PRN (18:06)
[2016-10-10] MEDS ORDERED: ACETAMINOPHEN 325 MG TAB PO PRN (18:07)
--- NOTE | 2016-10-10 18:39 | GHP ---
[f rep st] HISTORY AND PHYSICAL DATE OF ADMISSION: 10/10/2016 CHIEF COMPLAINT: Syncope, back pain. HISTORY OF PRESENT ILLNESS: Patient's history is markedly limited because he is extremely hard-of-h earing and not a good historian. Patient states he has been in the hospital overnight and persevera luke about them telling him that there is nothing wrong with him and that he could go home if he want ed to. He says yesterday he was feeling dizzy and tripped and fell, but the history from the ER is that he was at the seismic observer's office and developed syncope and back pain. Apparently, he was no t noted to be hypotensive or tachycardic en route. He had a little bit of vague back pain with the ER physician but is not complaining of any pain at this point. He denies any chest pain. No shortn ess of breath. He feels that he is back at his baseline. He was just admitted last month. He has been admitted multiple times for dizziness, was found to be in rapid atrial fibrillation in the past . Recently 1 month ago a pacemaker was placed. He has also had event monitors that have shown 3-se cond pauses in the past, as well. This is complicated by the fact that he does seem to have mechani vincent falls, as well. REVIEW OF SYSTEMS: A 10-point review of systems was obtained and otherwise was negative. PAST MEDICAL HISTORY: 1. 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 2. Type 2 diabetes. 3. Chronic systolic heart failure with an EF of 30% to 40%. 4. History of DVT and PE, on chronic anticoagulation. 5. Infrarenal AAA. 6. Coronary artery disease with a history of RCA stent. 7. Hypertension. 8. Hyperlipidemia. 9. Chronic kidney disease with baseline creatinine about 1.1. 10. BPH. 11. Gout. 12. Chronic back pain. 13. Osteoarthritis. MEDICATIONS: Reviewed. SOCIAL HISTORY: His is , and he is living independently. No alcohol or tobacco. He w orked for [employer] for many years. FAMILY HISTORY: Both parents are . PHYSICAL EXAMINATION: VITAL SIGNS: Afebrile, blood pressure is 148/68 sitting and standing is 116/ 103 with a heart rate going from 75-93. GENERAL: Patient is well developed, in no apparent distres s. HEENT: Nonicteric sclerae. Extraocular movements intact. Moist mucous membranes. NECK: Supp le. No thyromegaly. LUNGS. Good effort. Clear to auscultation bilaterally. CARDIOVASCULAR: Irr egularly irregular. No murmurs, rubs, or gallops. ABDOMEN: Positive bowel sounds. Soft, nontende r, nondistended. No hepatosplenomegaly. EXTREMITIES: No clubbing, cyanosis, or edema. SKIN: Wit hout rash. Warm, dry, intact. NEUROLOGIC: Alert and oriented x3. Moving all 4 extremities equall y. PSYCH: Normal affect. LABORATORY DATA: CBC is completely normal. INR is low 1.58. Chemistry is also normal with a creat inine 1.0. IMAGING DATA: CT scan, CTA of the chest, abdomen, pelvis shows no pulmonary embolism, possible pleu ral-based consolidation versus mass in the right lower lobe, and an infrarenal AAA that is stable, a s well as some other incidental findings. EKG, personally reviewed and interpreted, shows atrial fi brillation with no ischemic changes. ASSESSMENT: This is an 89-year-old male with past history of falls and tachy-jermaine syndrome with re cent pacemaker placement, presenting with syncope at the seismic observer's office. PLAN: 1. Syncope. I would like to confirm exactly what happened at the seismic observer's office. I would l [place] to get Cardiology involved tomorrow. We probably would like to get the pacemaker interrogated, as well. He is not endorsing any ischemic-type symptoms. He does have some mild orthostasis, and I am not sure if that is the cause. He could have gone into rapid AFib as he has had a problem with that in the past. I am not seeing a lot of suspicious medications on his MAR, although he is on dig oxin. 2. History of atrial fibrillation. Patient is rate controlled. 3. History of DVT/PE and atrial fibrillation. He is subtherapeutic on INR. Will cover with DVT pr ophylaxis dosing of Lovenox, not fully anticoagulated, and continue his Coumadin. 4. Chronic kidney disease. His creatinine is at baseline. 5. Infrarenal AAA. This appears to be stable. 6. Code status. Patient is a DNR. DISPOSITION: The patient will be admitted under observation status. Case is discussed with the ER physician. Old records reviewed and summarized in the HPI. EKG and CT scan were personally reviewe d and interpreted. /[id number]/MODL
[2016-10-10] MEDS: WARFARIN SODIUM 5 MG TAB PO SCH (19:36)
[2016-10-10] MEDS: SENNOSIDES/DOCUSATE SODIUM TAB PO SCH (20:16)
[2016-10-10] MEDS: METHENAMINE MANDELATE PO SCH (20:18)
[2016-10-10] MEDS ORDERED: VIT A PO SCH (21:00)
[2016-10-10] MEDS ORDERED: [UNRECOGNIZED DRUG - OTHER] PO SCH (21:00)
[2016-10-10] MEDS ORDERED: VIT C PO SCH (21:00)
[2016-10-10] MEDS ORDERED: VIT E PO SCH (21:00)
[2016-10-10] MEDS ORDERED: COPPER PO SCH (21:00)
[2016-10-10] MEDS ORDERED: ZINC PO SCH (21:00)
[2016-10-11] MEDS: ACETAMINOPHEN 325 MG TAB PO PRN ×2 (01:38→20:58)
[2016-10-11 05:24] LABS: ANION GAP 9 mEq/L (8-16); CALCIUM 8.5 mg/dL (8.5-10.4); CARBON DIOXIDE 25 mEq/l (22-31); CHLORIDE 109 mEq/L (97-110); CREATININE 0.9 mg/dL (0.7-1.3); GLOMERULAR FILTRATION RATE > 60; GLUCOSE 89 mg/dL (70-100); SODIUM 143 mEq/L (134-144)
[2016-10-11 05:26] LABS: INR 1.74 (0.83-1.16); PROTIME(PATIENT) 20.4 SEC (12.0-15.0)
[2016-10-11 05:33] LABS: TROPONIN I 0.018 ng/mL (0-0.034)
--- NOTE | 2016-10-11 08:44 | CPEKG ---
Heart Rate: 69 RR Interval: 870 QRSD Interval: 126 QT Interval: 400 QTC Interval: 429 QRS [place]: -27 T Wave [place]: -8 EKG Severity - ABNORMAL ECG - EKG Impression: ATRIAL FIBRILLATION EKG Impression: RIGHT BUNDLE BRANCH BLOCK EKG Impression: PACED VENTRICULAR BEAT EKG Impression: COMPARED WITH OCT 10 2016, V PACED BEAT NOW PRESENT Electronically Signed By: Alethea Stanford 11-Oct-2016 10:26:10
[2016-10-11] MEDS ORDERED: ENOXAPARIN 40 MG/0.4 ML SYR SC SCH (09:00)
[2016-10-11] MEDS ORDERED: NON-FORMULARY NEW DRUG (Omeprazole [Prilosec 20 Mg] 20 MG) PO SCH (09:00)
[2016-10-11] MEDS: SENNOSIDES/DOCUSATE SODIUM TAB PO SCH ×2 (09:21→20:58)
[2016-10-11] MEDS: DIGOXIN 125 MCG TAB PO SCH (09:22)
[2016-10-11] MEDS: PANTOPRAZOLE SODIUM 40 MG TAB PO SCH (09:22)
[2016-10-11] MEDS: PRESERVISION AREDS2 FORMULA EYE VIT 1 EACH PO SCH ×2 (09:22→19:50)
[2016-10-11] MEDS: METHENAMINE MANDELATE PO SCH (09:22)
[2016-10-11] MEDS: WARFARIN SODIUM 5 MG TAB PO SCH (15:41)
[2016-10-11] MEDS: ATORVASTATIN CALCIUM 40 MG TAB PO SCH (15:41)
--- NOTE | 2016-10-11 16:27 | HOSPPROG ---
Hospitalist Progress Note Assessment/Plan: # pre-syncope - unclear etiology, possibly hypoxia, arrhythmia, other - appreciate cards input, ppm interrogation? 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 # infrarenal AAA # possible lung mass - outpatient f/u # DNR # vte ppx - lovenox ## new pt to me chart reviewed CT's reviewed Subjective: Overall feeling better today, but got dizzy with deep breaths Objective: Vital Signs Temp Pulse Resp BP Pulse Ox 36.7 C 86 19 112/60 92 10/11/16 11:39 10/11/16 11:39 10/11/16 11:39 10/11/16 11:39 10/11/16 11:39 Laboratory Results 10/11/16 04:30 10/10/16 10/11/16 10/12/16 05:59 05:59 05:59 Intake Total 810 570 Output Total 700 200 Balance 110 370 PT 20.4 SEC (12.0-15.0) H 10/11/16 04:30 INR 1.74 (0.83-1.16) H 10/11/16 04:30 - Physical Exam Constitutional: no apparent distress, appears nourished Cardiovascular: no murmur, rub, or gallop, irregularly irregular Respiratory: no respiratory distress, no rales or rhonchi, clear to auscultation Gastrointestinal: normoactive bowel sounds, soft, non-tender abdomen, no palpable masses ICD10 Worksheet Patient Problems: Problems Problem Status Onset Pneumonia Acute Atrial fibrillation with tachycardic ventricular rate Acute Chest pain Acute Palliative care encounter Acute Congestive heart failure Acute Dizziness Acute Failure to thrive Acute Confusion Acute Head injury Acute Frequent falls Acute Acute exacerbation of congestive heart failure Acute Scalp contusion Acute Neck strain Acute Atrial fibrillation Acute Syncope Acute
--- NOTE | 2016-10-11 16:54 | PDCARPN ---
Cardiology Progress Note Chief Complaint: Near-Syncope Assessment/Plan: Assessment: Near-syncopal episode while at [facility] 10/10/16. He reports that he felt increasingly SOB and needed oxygen but did not have any. He believes he nearly passed out due to lack of oxygen. Once he got continuous oxygen, he felt much better. He always uses night oxygen, and occasionally he needs it during the day. Today he used it this morning. This afternoon he has not needed it. No tachy or jermaine heart rates noted on telemetry. His BP has been normotensive. He had no chest pain. He may have been hypoxic with his episode of SOB. PPM-- His pacemaker was interrogated yesterday 10/10/16, while at [facility] where he had the initial pre-syncopal episode. Normal function. No unusual mode-switching or indication of rapid rates. CHF- currently compensated. Today with no SOB, or edema. He continues on medical therapy. Currently residing at [facility]. Medication compliance. A-Fib managed on digoxin and anticoagulation. Well controlled. Plan: Recommend to continue monitoring him overnight. Likely back to "[facility] " Facility in AM. 10/11/16 16:41 Subjective: I feel much better today. I only needed oxygen a bit this morning. Reviewed/Discussed With: hospitalist, multidisciplinary team Time Spent With Patient: 40 minutes Objective: Vital Signs (8 Hrs) Temp Pulse Resp BP Pulse Ox 10/11/16 16:18 36.9 C 89 17 120/90 H 92 10/11/16 11:39 36.7 C 86 19 112/60 92 10/11/16 09:22 85 Intake/Output (24 Hrs) 10/10/16 10/11/16 10/12/16 05:59 05:59 05:59 Intake Total 810 720 Output Total 700 300 Balance 110 420 Intake: Oral (ml) 810 720 Output: Urine (ml) 700 300 Toilet 550 300 Urinal 150 Other: Weight 79.5 kg Number of Voids Toilet 1 Number of Stools Toilet 1 Result Diagrams: 10/10/16 11:44 10/11/16 04:30 Cardiac Labs: Cardiac Lab Results (72 Hrs) 10/11/16 04:30 Troponin I 0.018 - Physical Exam Constitutional: no apparent distress Eyes: PERRL Cardiovascular: regular rate and rhythm, no murmurs, no rubs Peripheral Pulses: 1+: dorsalis-pedis (R), dorsalis-pedis (L) Respiratory: clear to auscultate bilat, no crackles, no wheezes, reduced air movement Gastrointestinal: no tenderness Skin: warm, no edema Neurologic: AAOx3 Psychiatric: cooperative, interactive ICD10 Worksheet Patient Problems: Problems Problem Status Onset Atrial fibrillation Acute Dizziness Acute Failure to thrive Acute Neck strain Acute Syncope Acute Acute exacerbation of congestive heart failure Acute Atrial fibrillation with tachycardic ventricular rate Acute Chest pain Acute Confusion Acute Congestive heart failure Acute Frequent falls Acute Head injury Acute Palliative care encounter Acute Pneumonia Acute Scalp contusion Acute
[2016-10-12] MEDS: METHENAMINE MANDELATE PO SCH ×3 (00:45→20:17)
[2016-10-12 05:14] LABS: % IMMATURE GRANULYOCYTES 0.2 % (0.0-1.1); ABSOLUTE IMMATURE GRANULOCYTES 0.01 10^3/uL (0.00-0.10); ADD DIFF? NO; ADD MORPH? NO; ADD SCAN? NO; ATYPICAL LYMPHOCYTE FLAG 0 (0-99); FRAGMENT RBC FLAG 0 (0-99); HEMATOCRIT 40.7 % (40.0-51.0); HEMOGLOBIN 13.1 g/dL (13.7-17.5); LEFT SHIFT FLG 0 (0-99); LIPEMIA HEMOLYSIS FLAG 80 (0-99); MEAN CELL HEMOGLOBIN CONCENTR. 32.2 g/dL (32.4-36.7); MEAN CELL VOLUME 93.3 fL (81.5-99.8); MEAN PLATELET VOLUME 10.5 fL (8.7-11.7); PLATELET CLUMPS FLAG 0 (0-99); PLATELET COUNT 144 10^3/uL (150-400); RED BLOOD CELL COUNT 4.36 10^6/uL (4.40-6.38); RED CELL DISTRIBUTION WIDTH 14.9 % (11.5-15.2)
[2016-10-12 05:20] LABS: INR 1.98 (0.83-1.16); PROTIME(PATIENT) 22.6 SEC (12.0-15.0)
[2016-10-12 05:27] LABS: ANION GAP 9 mEq/L (8-16); CALCIUM 8.4 mg/dL (8.5-10.4); CARBON DIOXIDE 24 mEq/l (22-31); CHLORIDE 109 mEq/L (97-110); CREATININE 0.9 mg/dL (0.7-1.3); GLOMERULAR FILTRATION RATE > 60; GLUCOSE 90 mg/dL (70-100); POTASSIUM 4.1 mEq/L (3.5-5.2); SODIUM 142 mEq/L (134-144)
[2016-10-12] MEDS: PRESERVISION AREDS2 FORMULA EYE VIT 1 EACH PO SCH ×2 (08:20→17:30)
[2016-10-12] MEDS: PANTOPRAZOLE SODIUM 40 MG TAB PO SCH (08:21)
[2016-10-12] MEDS: SENNOSIDES/DOCUSATE SODIUM TAB PO SCH ×2 (08:21→19:27)
[2016-10-12] MEDS: DIGOXIN 125 MCG TAB PO SCH (10:19)
--- NOTE | 2016-10-12 11:30 | PDCARPN ---
Cardiology Progress Note Assessment/Plan: Assessment: Near-syncopal episode while at [facility] 10/10/16. He reports that he felt increasingly SOB and needed oxygen but did not have any. He believes he nearly passed out due to lack of oxygen. Once he got continuous oxygen, he felt much better. He always uses night oxygen, and occasionally he needs it during the day. Today he used it this morning. This afternoon he has not needed it. No tachy or jermaine heart rates noted on telemetry. His BP has been normotensive. He had no chest pain. He may have been hypoxic with his episode of SOB. PPM-- His pacemaker was interrogated yesterday 10/10/16, while at [facility] where he had the initial pre-syncopal episode. Normal function. No unusual mode-switching or indication of rapid rates. CHF- currently compensated. Today with no SOB, or edema. He continues on medical therapy. Currently residing at [facility]. Medication compliance. A-Fib managed on digoxin and anticoagulation. Well controlled. Plan: Recommend to continue monitoring him overnight. Likely back to [facility] " Facility in AM. 10/11/16 16:41 10/12/16 11:23 Today he is up in chair. He is a bit agitated today as his "routine" is not the same as at home". He got up too early and had to get around earlier than he likes to. He also does not have his glasses, but his family will bring today. His lab, O2 Sat and VS are stable and has no new problems. CHF remains compensated. AFib is chronic, rate managed well, Dig level 1.0, and he remains on Coumadin with INR 1.9. He is stable from Cards point for discharge. I did discuss with Dr Feliz Jasso, Hospitalist that [facility], and because Lucius has stated he wants to go home, Case Management and his family, may need to be involved with his discharge. He should follow up with Dr Medrano or myself at [facility] in the next 2 weeks. Will sign off now. Objective: Vital Signs (8 Hrs) Temp Pulse Resp BP Pulse Ox 10/12/16 10:19 85 10/12/16 07:13 36.4 C 70 18 127/73 H 91 L 10/12/16 04:00 36.8 C 65 18 138/68 H 94 Intake/Output (24 Hrs) 10/11/16 10/12/16 10/13/16 05:59 05:59 06:59 Intake Total 570 200 Output Total 500 200 Balance 70 0 Intake: Oral (ml) 570 200 Output: Urine (ml) 500 200 Toilet 500 200 Other: Number of Voids Toilet 1 1 Number of Stools Toilet 1 Result Diagrams: 10/12/16 04:20 10/12/16 04:20 ICD10 Worksheet Patient Problems: Problems Problem Status Onset Pneumonia Acute Atrial fibrillation with tachycardic ventricular rate Acute Chest pain Acute Palliative care encounter Acute Congestive heart failure Acute Dizziness Acute Failure to thrive Acute Confusion Acute Head injury Acute Frequent falls Acute Acute exacerbation of congestive heart failure Acute Scalp contusion Acute Neck strain Acute Atrial fibrillation Acute Syncope Acute
--- NOTE | 2016-10-12 14:53 | HOSPPROG ---
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 # infrarenal AAA # possible lung mass - outpatient f/u # [place] # DNR # vte ppx - lovenox ## Subjective: very difficult time communicating d/t [place]; discussed at length dispo plans; discussed with his son on the phone as well Objective: Vital Signs Temp Pulse Resp BP Pulse Ox 36.2 C 84 18 130/78 H 90 L 10/12/16 12:00 10/12/16 12:00 10/12/16 12:00 10/12/16 12:00 10/12/16 12:00 Laboratory Results 10/12/16 04:20 10/12/16 04:20 10/11/16 10/12/16 10/13/16 05:59 05:59 06:59 Intake Total 570 200 Output Total 500 200 Balance 70 0 PT 22.6 SEC (12.0-15.0) H 10/12/16 04:20 INR 1.98 (0.83-1.16) H 10/12/16 04:20 - Time Spent With Patient Time Spent with Patient: greater than 35 minutes Time Spent with Patient: Greater than 35 minutes spent on this patients care, greater than 50% of time spent counseling, educating, and coordinating care regarding the above mentioned plan. - Physical Exam Constitutional: no apparent distress Ears, Nose, Mouth, Throat: hard of hearing Cardiovascular: regular rate and rhythym, no murmur, rub, or gallop Respiratory: no respiratory distress, no rales or rhonchi, clear to auscultation Gastrointestinal: normoactive bowel sounds, soft, non-tender abdomen, no palpable masses ICD10 Worksheet Patient Problems: Problems Problem Status Onset Pneumonia Acute Atrial fibrillation with tachycardic ventricular rate Acute Chest pain Acute Palliative care encounter Acute Congestive heart failure Acute Dizziness Acute Failure to thrive Acute Confusion Acute Head injury Acute Frequent falls Acute Acute exacerbation of congestive heart failure Acute Scalp contusion Acute Neck strain Acute Atrial fibrillation Acute Syncope Acute
[2016-10-12] MEDS: ATORVASTATIN CALCIUM 40 MG TAB PO SCH (17:29)
[2016-10-12] MEDS: WARFARIN SODIUM 5 MG TAB PO SCH (17:29)
[2016-10-12] MEDS: ACETAMINOPHEN 325 MG TAB PO PRN (19:27)
[2016-10-13 05:57] LABS: % IMMATURE GRANULYOCYTES 0.4 % (0.0-1.1); ABSOLUTE IMMATURE GRANULOCYTES 0.02 10^3/uL (0.00-0.10); ADD DIFF? NO; ADD MORPH? NO; ADD SCAN? NO; ATYPICAL LYMPHOCYTE FLAG 10 (0-99); FRAGMENT RBC FLAG 0 (0-99); HEMATOCRIT 41.1 % (40.0-51.0); HEMOGLOBIN 13.2 g/dL (13.7-17.5); LEFT SHIFT FLG 0 (0-99); LIPEMIA HEMOLYSIS FLAG 80 (0-99); MEAN CELL HEMOGLOBIN CONCENTR. 32.1 g/dL (32.4-36.7); MEAN CELL VOLUME 93.4 fL (81.5-99.8); MEAN PLATELET VOLUME 10.5 fL (8.7-11.7); PLATELET CLUMPS FLAG 0 (0-99); PLATELET COUNT 135 10^3/uL (150-400); RED CELL DISTRIBUTION WIDTH 14.9 % (11.5-15.2)
[2016-10-13 06:12] LABS: ANION GAP 6 mEq/L (8-16); CALCIUM 8.6 mg/dL (8.5-10.4); CARBON DIOXIDE 27 mEq/l (22-31); CHLORIDE 109 mEq/L (97-110); CREATININE 0.9 mg/dL (0.7-1.3); GLOMERULAR FILTRATION RATE > 60; GLUCOSE 98 mg/dL (70-100); POTASSIUM 4.4 mEq/L (3.5-5.2); SODIUM 142 mEq/L (134-144)
[2016-10-13 06:15] LABS: INR 2.12 (0.83-1.16); PROTIME(PATIENT) 23.9 SEC (12.0-15.0)
[2016-10-13] MEDS: DIGOXIN 125 MCG TAB PO SCH (10:01)
[2016-10-13] MEDS: SENNOSIDES/DOCUSATE SODIUM TAB PO SCH ×2 (10:01→20:53)
[2016-10-13] MEDS: PRESERVISION AREDS2 FORMULA EYE VIT 1 EACH PO SCH ×2 (10:01→17:27)
[2016-10-13] MEDS: PANTOPRAZOLE SODIUM 40 MG TAB PO SCH (10:01)
[2016-10-13] MEDS: METHENAMINE MANDELATE PO SCH ×2 (10:01→20:57)
--- NOTE | 2016-10-13 11:36 | HOSPPROG ---
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 # infrarenal AAA # possible lung mass - outpatient f/u # [place] # DNR # vte ppx - lovenox # dispo - seems unsafe for home but adamantly refuses SNF or [facility]; I believe he has decisional capacity ## Subjective: seen with his son and discussed extensively with him and CM; Mr Merchant became very frustrated and began yelling at his son, me and CM; Objective: Vital Signs Temp Pulse Resp BP Pulse Ox 36.6 C 75 16 131/80 H 91 L 10/13/16 08:09 10/13/16 10:01 10/13/16 08:09 10/13/16 08:09 10/13/16 08:09 Laboratory Results 10/13/16 05:05 10/13/16 05:05 10/12/16 10/13/16 10/14/16 04:59 05:59 05:59 Intake Total Output Total Balance PT 23.9 SEC (12.0-15.0) H 10/13/16 05:05 INR 2.12 (0.83-1.16) H 10/13/16 05:05 - Time Spent With Patient Time Spent with Patient: greater than 35 minutes Time Spent with Patient: Greater than 35 minutes spent on this patients care, greater than 50% of time spent counseling, educating, and coordinating care regarding the above mentioned plan. - Physical Exam Constitutional: no apparent distress, appears nourished ICD10 Worksheet Patient Problems: Problems Problem Status Onset Pneumonia Acute Atrial fibrillation with tachycardic ventricular rate Acute Chest pain Acute Palliative care encounter Acute Congestive heart failure Acute Dizziness Acute Failure to thrive Acute Confusion Acute Head injury Acute Frequent falls Acute Acute exacerbation of congestive heart failure Acute Scalp contusion Acute Neck strain Acute Atrial fibrillation Acute Syncope Acute
[2016-10-13] MEDS: WARFARIN SODIUM 5 MG TAB PO SCH (17:27)
[2016-10-13] MEDS: ATORVASTATIN CALCIUM 40 MG TAB PO SCH (17:27)
[2016-10-14 04:56] LABS: % IMMATURE GRANULYOCYTES 0.4 % (0.0-1.1); ABSOLUTE IMMATURE GRANULOCYTES 0.02 10^3/uL (0.00-0.10); ADD DIFF? NO; ADD MORPH? NO; ADD SCAN? NO; ATYPICAL LYMPHOCYTE FLAG 10 (0-99); FRAGMENT RBC FLAG 0 (0-99); HEMOGLOBIN 13.8 g/dL (13.7-17.5); LEFT SHIFT FLG 0 (0-99); LIPEMIA HEMOLYSIS FLAG 80 (0-99); MEAN CELL HEMOGLOBIN CONCENTR. 32.1 g/dL (32.4-36.7); MEAN CELL VOLUME 93.5 fL (81.5-99.8); MEAN PLATELET VOLUME 10.4 fL (8.7-11.7); PLATELET CLUMPS FLAG 0 (0-99); PLATELET COUNT 148 10^3/uL (150-400); RED CELL DISTRIBUTION WIDTH 14.7 % (11.5-15.2)
[2016-10-14 05:05] LABS: INR 2.25 (0.83-1.16); PROTIME(PATIENT) 25.1 SEC (12.0-15.0)
[2016-10-14 05:09] LABS: ANION GAP 8 mEq/L (8-16); CALCIUM 8.4 mg/dL (8.5-10.4); CARBON DIOXIDE 24 mEq/l (22-31); CHLORIDE 109 mEq/L (97-110); CREATININE 0.8 mg/dL (0.7-1.3); GLOMERULAR FILTRATION RATE > 60; GLUCOSE 84 mg/dL (70-100); POTASSIUM 4.2 mEq/L (3.5-5.2); SODIUM 141 mEq/L (134-144)
[2016-10-14] MEDS: DIGOXIN 125 MCG TAB PO SCH (10:36)
[2016-10-14] MEDS: SENNOSIDES/DOCUSATE SODIUM TAB PO SCH ×2 (10:36→19:51)
[2016-10-14] MEDS: PRESERVISION AREDS2 FORMULA EYE VIT 1 EACH PO SCH ×2 (10:36→18:13)
[2016-10-14] MEDS: PANTOPRAZOLE SODIUM 40 MG TAB PO SCH (10:36)
[2016-10-14] MEDS: METHENAMINE MANDELATE PO SCH ×2 (10:38→19:52)
[2016-10-14] MEDS: WARFARIN SODIUM 5 MG TAB PO SCH (15:18)
[2016-10-14] MEDS: ATORVASTATIN CALCIUM 40 MG TAB PO SCH (15:18)
--- NOTE | 2016-10-14 16:04 | HOSPPROG ---
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 tomorrow ## Subjective: much more calm today; apologetic for yelling yesterday; we had a nice discussion and found that we are neighbors Objective: Vital Signs Temp Pulse Resp BP Pulse Ox 36.3 C 79 16 114/69 92 10/14/16 15:41 10/14/16 15:41 10/14/16 15:41 10/14/16 15:41 10/14/16 15:41 Laboratory Results 10/14/16 04:17 10/14/16 04:17 10/13/16 10/14/16 10/15/16 05:59 05:59 05:59 Intake Total 550 Output Total Balance 550 PT 25.1 SEC (12.0-15.0) H 10/14/16 04:17 INR 2.25 (0.83-1.16) H 10/14/16 04:17 - Time Spent With Patient Time Spent with Patient: greater than 25 minutes Time Spent with Patient: Greater than 25 minutes spent on this patients care, greater than 50% of time spent counseling, educating, and coordinating care regarding the above mentioned plan. ICD10 Worksheet Patient Problems: Problems Problem Status Onset Pneumonia Acute Atrial fibrillation with tachycardic ventricular rate Acute Chest pain Acute Palliative care encounter Acute Congestive heart failure Acute Dizziness Acute Failure to thrive Acute Confusion Acute Head injury Acute Frequent falls Acute Acute exacerbation of congestive heart failure Acute Scalp contusion Acute Neck strain Acute Atrial fibrillation Acute Syncope Acute
[2016-10-15] MEDS: SENNOSIDES/DOCUSATE SODIUM TAB PO SCH ×2 (09:04→20:06)
[2016-10-15] MEDS: DIGOXIN 125 MCG TAB PO SCH (09:04)
[2016-10-15] MEDS: PRESERVISION AREDS2 FORMULA EYE VIT 1 EACH PO SCH ×2 (09:04→18:20)
[2016-10-15] MEDS: PANTOPRAZOLE SODIUM 40 MG TAB PO SCH (09:04)
[2016-10-15] MEDS: METHENAMINE MANDELATE PO SCH ×2 (09:06→21:36)
--- NOTE | 2016-10-15 11:02 | GDS ---
ADDENDUM TO PREVIOUSLY DICTATED REPORT Please see discharge summary dictated yesterday. No other changes were made other than waiting for insurance authorization. /[id number]/MODL [id number], chastity. ORIGINAL REPORT [f rep st] DISCHARGE SUMMARY DISCHARGE DIAGNOSES: 1. Presyncope, probably related to hypoxia, as he was not using his oxygen. 2. History of systolic congestive heart failure. 3. Atrial fibrillation. 4. History of deep venous thrombosis and pulmonary embolism. 5. Infrarenal abdominal aortic aneurysm. 6. Possible lung mass. HISTORY: This is an 89-year-old male, who had a presyncopal episode. HOSPITAL COURSE: The patient is admitted, and Cardiology was consulted. He had a pacemaker that was interrogated and did not show any rapid rates. It was thought that he might have almost passed out because of lack of oxygen. He was not using his oxygen at the time of his episode. It is felt the patient needed to go to a longterm facility for rehab. He finally agreed to this, and he will be discharged there today. TIME SPENT: Greater than 30 minutes. /[id number]/MODL MTDD
[2016-10-15] MEDS: ATORVASTATIN CALCIUM 40 MG TAB PO SCH (15:24)
[2016-10-15] MEDS: WARFARIN SODIUM 5 MG TAB PO SCH (15:24)
--- NOTE | 2016-10-15 16:40 | HOSPPROG ---
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 # infrarenal AAA # possible lung mass - outpatient f/u # [place] # DNR # vte ppx - lovenox # dispo - will likely go to [facility] tomorrow, we did not get insurance authorization today Subjective: irritable but no new complaints Objective: Vital Signs Temp Pulse Resp BP Pulse Ox 36.2 C 73 20 103/64 93 10/15/16 15:15 10/15/16 15:15 10/15/16 15:15 10/15/16 15:15 10/15/16 15:15 Laboratory Results 10/14/16 04:17 10/14/16 04:17 10/14/16 10/15/16 10/16/16 05:59 05:59 05:59 Intake Total 550 1160 150 Output Total 3 Balance 550 1157 150 PT 25.1 SEC (12.0-15.0) H 10/14/16 04:17 INR 2.25 (0.83-1.16) H 10/14/16 04:17 - Physical Exam Constitutional: no apparent distress, appears nourished, not in pain Eyes: anicteric sclera, EOMI Ears, Nose, Mouth, Throat: moist mucous membranes, No hearing normal Respiratory: no respiratory distress Gastrointestinal: normoactive bowel sounds, soft, non-tender abdomen, no palpable masses Neurologic: AAOx3 Psychiatric: interacting appropriately, not anxious, not encephalopathic, thought process linear ICD10 Worksheet Patient Problems: Problems Problem Status Onset Atrial fibrillation Acute Dizziness Acute Failure to thrive Acute Neck strain Acute Syncope Acute Acute exacerbation of congestive heart failure Acute Atrial fibrillation with tachycardic ventricular rate Acute Chest pain Acute Confusion Acute Congestive heart failure Acute Frequent falls Acute Head injury Acute Palliative care encounter Acute Pneumonia Acute Scalp contusion Acute
[2016-10-16] MEDS: METHENAMINE MANDELATE PO SCH (08:57)
[2016-10-16] MEDS: SENNOSIDES/DOCUSATE SODIUM TAB PO SCH (09:13)
[2016-10-16] MEDS: PANTOPRAZOLE SODIUM 40 MG TAB PO SCH (09:13)
[2016-10-16] MEDS: PRESERVISION AREDS2 FORMULA EYE VIT 1 EACH PO SCH ×2 (09:14→16:46)
[2016-10-16] MEDS: DIGOXIN 125 MCG TAB PO SCH (11:03)
[2016-10-16 16:13] VITALS: BP 122/62; PULSE 70; RESP 19; TEMP 98.2; O2SAT 95
--- NOTE | 2016-10-16 16:23 | PDIAF ---
- Diagnosis Diagnosis: syncope Code Status: Do Not Resuscitate - Medication Management Discharge Medications: Medications to Continue on Transfer Acetaminophen [Tylenol 325mg (*)] 650 mg PO DAILY PRN 11/01/13 [Last Taken 09/07 09:00] Warfarin Sodium [Coumadin 5MG (*)] 5 mg PO DAILY@16 11/01/13 [Last Taken 16:00] Atorvastatin Calcium [Lipitor 40 mg (*)] 40 mg PO DAILY@16 01/06/15 [Last Taken 09/07/16 16:00] Methenamine Mandelate [METHENAMINE MANDELATE] 0.5 tab PO BID 01/06/15 [Last Taken 09/07/16 16:00] Colchicine [Colcrys] 0.6 mg PO DAILY PRN 10/29/15 [Last Taken 09/05/16] Hayti-3 Fatty Acids [Fish Oil 1000 mg (*)] 1,000 mg PO BID 10/29/15 [Last Taken 09/07/16 16:00] Vit A/Vit C/Vit E/Zinc/Copper [Preservision Areds Softgel] 1 cap PO BID [Last Taken 09/07/16 16:00] Digoxin [Lanoxin 125 mcg (RX)] 125 mcg PO DAILY10 #0 tab 09/12/16 [Last Taken Unknown] Bisacodyl [Dulcolax] 10 mg RC DAILY PRN 10/10/16 [Last Taken Unknown] Omeprazole [Prilosec 20 mg] 20 mg PO DAILY 10/10/16 [Last Taken Unknown] Ondansetron Odt [Zofran Odt 4 mg (*)] 4 mg PO Q8H PRN 10/10/16 [Last Taken Unknown] Polyethylene Glycol 3350 [Miralax 17 gm (*)] 17 gm PO DAILY PRN 10/10/16 [Last Taken Unknown] Sennosides/Docusate Sodium [Senna-Docusate Sodium Tablet] 1 each PO BID [Last Taken Unknown] Discharge Medications: Refer to the Discharge Home Medication list for PRN reason. - Orders Services needed: Physical Therapy, Occupational Therapy Oxygen: 2L [place] Diet Recommendation: no restrictions on diet - Labs/Radiology PT/INR Date: 10/23/16 - Follow Up Care Current Providers and Referrals: Lori Dhillon CNP [Certified Nurse Practioner] - follow up in 1 week ( office will call with f/up appointment Friday.) Haroon Santiago [Primary Care Provider] -
[2016-10-16] MEDS: WARFARIN SODIUM 5 MG TAB PO SCH (16:46)
[2016-10-16] MEDS: ATORVASTATIN CALCIUM 40 MG TAB PO SCH (16:46)
== END 2016-10-16 16:58 | DRG 312 ==
LOC: EDSEX → EDUNIT# → F2W 15:28 → OBSVTOIN 10-11 16:19
PROVIDERS: ADMIT Internal Medicine; ATTEND Internal Medicine
DX: R55 Syncope and collapse (principal); R09.02 Hypoxemia; I48.2 Chronic atrial fibrillation; I25.10 Atherosclerotic heart disease of native coronary artery without angina pectoris; E78.5 Hyperlipidemia, unspecified; I50.22 Chronic systolic (congestive) heart failure; E11.22 Type 2 diabetes mellitus with diabetic chronic kidney disease; I12.9 Hypertensive chronic kidney disease with stage 1 through stage 4 chronic kidney disease, or unspecified chronic kidney disease; N18.9 Chronic kidney disease, unspecified; G89.29 Other chronic pain; M54.5 Low back pain; I71.4 Abdominal aortic aneurysm, without rupture; Z79.01 Long term (current) use of anticoagulants; Z86.718 Personal history of other venous thrombosis and embolism; Z86.711 Personal history of pulmonary embolism; Z95.5 Presence of coronary angioplasty implant and graft; Z95.0 Presence of cardiac pacemaker; Z66 Do not resuscitate
CPT/HCPCS: 82947-QW; 92523-GN; 97110-GP; 97116-GP; 97162-GP; 97165-GO; 97530-GO; 97530-GP; 97535-GO; G0378; J1650; Q9967